=== PATIENT | male | born 1940 | race Caucasian/White ===

== ENCOUNTER 2016-11-25 07:50 | Outpatient (CLI) | payer MEDICARE, OTHER | END 2016-11-25 07:51 | disposition home or self-care (01) | DX: I10 Essential (primary) hypertension (principal); E11.9 Type 2 diabetes mellitus without complications; E78.00 Pure hypercholesterolemia, unspecified; Z79.899 Other long term (current) drug therapy ==

== ENCOUNTER 2017-01-06 14:58 | Outpatient (CLI) | payer MEDICARE, OTHER | END 2017-01-06 14:59 | disposition home or self-care (01) | DX: G47.33 Obstructive sleep apnea (adult) (pediatric) (principal); R23.4 Changes in skin texture | CPT/HCPCS: 99214; G0463 ==

== ENCOUNTER 2017-03-10 08:30 | Outpatient (CLI) | payer MEDICARE, OTHER ==
[2017-03-10 14:47] LABS: HEMOGLOBIN A1C 0.75 g/dL
== END 2017-03-10 08:31 | disposition home or self-care (01) ==
LOC: LAB.WCP 08:30
PROVIDERS: ATTEND Family Medicine
DX: E11.9 Type 2 diabetes mellitus without complications (principal)
CPT/HCPCS: 36415; 83036

== ENCOUNTER 2017-03-11 08:31 | Outpatient (CLI) | payer MEDICARE, OTHER | END 2017-03-11 08:32 | disposition home or self-care (01) | LOC: SC 08:31 | PROVIDERS: ATTEND Nurse Practitioner Family | DX: G47.33 Obstructive sleep apnea (adult) (pediatric) (principal) | CPT/HCPCS: 99214; G0463; 99212 ==

== ENCOUNTER 2017-09-03 14:16 | Outpatient (CLI) | payer MEDICARE, OTHER ==
[2017-09-03 13:17] LABS: BASOPHILS % (AUTO) 0.6 %; EOSINOPHILS # (AUTO) 0.4 10^3/uL (0.0-0.7); HCT - HEMATOCRIT 39.6 % (42.0-52.0); LYMPHOCYTES # (AUTO) 2.4 10^3/uL (1.5-3.5); LYMPHOCYTES % (AUTO) 32.5 %; MEAN CORPUSCULAR HEMOGLOBIN 27.5 pg (27.0-31.0); MEAN CORPUSCULAR HGB CONC 32.8 g/dL (32.0-36.0); MEAN CORPUSCULAR VOLUME 83.7 fL (80.0-94.0); MEAN PLATELET VOLUME 10.1 fL (7.4-11.4); MONOCYTES % (AUTO) 13.5 %; NEUTROPHILS # (AUTO) 3.6 10^3/uL (1.5-6.6); NEUTROPHILS % (AUTO) 48.4 %; NUCLEATED RED BLOOD CELLS AUTO 0.1 /100WBC; RED BLOOD COUNT 4.73 10^6/uL (4.70-6.10); RED CELL DISTRIBUTION WIDTH 16.9 % (12.0-15.0); UNCORRECTED WHITE BLOOD COUNT 7.5 x10^3/uL; WHITE BLOOD COUNT 7.5 x10^3/uL (4.8-10.8)
[2017-09-03 14:08] LABS: ALBUMIN/GLOBULIN RATIO 1.1 (1.0-2.2); BILIRUBIN,TOTAL 0.8 mg/dL (0.2-1.0); BUN - BLOOD UREA NITROGEN 15 mg/dL (6-20); CALCIUM 9.2 mg/dL (8.5-10.3); CARBON DIOXIDE - CO2 24 mmol/L (21-32); CHLORIDE 104 mmol/L (101-111); CHOL/HDL RATIO 4.2 (<5.0); CHOLESTEROL 143 mg/dL; CREATININE 1.1 mg/dL (0.6-1.2); GFR - MDRD 65 (>89); GLUCOSE 137 mg/dL (70-100); HDL CHOLESTEROL 34 mg/dL; LDL/HDL RATIO 2.5 (<3.6); POTASSIUM 4.3 mmol/L (3.5-5.0); SODIUM 137 mmol/L (135-145); TOTAL PROTEIN 7.3 g/dL (6.7-8.2); TRIGLYCERIDES 125 mg/dL; VLDL CHOLESTEROL 25 mg/dL
[2017-09-03 16:20] LABS: HEMOGLOBIN A1C 0.77 g/dL
== END 2017-09-03 14:17 | disposition home or self-care (01) ==
LOC: LAB.WCP 14:16
PROVIDERS: ATTEND Family Medicine
DX: E11.9 Type 2 diabetes mellitus without complications (principal); I10 Essential (primary) hypertension; Z79.899 Other long term (current) drug therapy
CPT/HCPCS: 36415; 80053; 80061; 83036; 84443; 85025

== ENCOUNTER 2017-09-25 11:49 | Outpatient (CLI) | payer MEDICARE, OTHER ==
[2017-09-25] MEDS ORDERED: ADENOSINE 60 MG/20 ML VIAL IVP ONE (14:30)
[2017-09-25 18:29] VITALS: BP 142/76
--- NOTE | 2017-09-25 22:00 | Nuclear Medicine Report ---
EXAM: NUCLEAR MEDICINE MYOCARDIAL PERFUSION STRESS AND REST EXAM EXAM DATE: 09/25/2017 04:44 PM. 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 COMPARISON: None. TECHNIQUE: Patient given 10.9 mCi technetium 99m sestamibi IV for the rest portion of the exam. Non-g ated cardiac SPECT scintigraphy of the heart performed with multiplanar reformats. Patient then given intravenous adenosine infusion. Pharmacologic stress. After this, patient given 41 .3 mCi technetium 99m sestamibi IV. Cardiac gated SPECT scintigraphy performed with multiplanar refor mats, wall motion analysis, and left ventricular ejection fraction estimation. FINDINGS: Small focus of mild to moderate decreased activity inferolateral apex on stress with normalization on rest. Otherwise uniform activity in the left ventricular myocardium. Wall motion is uniform. Left ventricular ejection fraction estimated at 59%. IMPRESSION: 1. Small focus mild to moderate inferior lateral apical ischemia with normalization on rest. 2. Left ventricular ejection fraction estimated at 59%. [facility] Referring Provider Line: [phone] SITE ID: [id number]
--- NOTE | 2017-09-26 09:07 | CARDIAC PROCEDURE NOTE ---
DATE OF SERVICE: 09/25/2017 Physician: AURORA Mario DATE OF SERVICE: 09/25/2017. PRIMARY CARE PHYSICIAN: Dr. Alfa Booker. PROCEDURE: Pharmacologic stress test. PROCEDURE SYMPTOMS: Abnormal EKG. CARDIAC RISK FACTORS: Include age, diabetes, hypertension and hyperlipidemia. PREVIOUS CARDIAC PROCEDURES: Inadequate treadmill test due to knee OA. CLINICAL HISTORY: A 77-year-old male without known coronary artery disease. Initial resting vital - blood pressure 142/76, heart rate 70, height 69-1/2 inches, weight 298 pounds, BMI 43.4. PROCEDURE AND FINDINGS: The patient's identity and date verified, consent signed, pharmaceutical check done. Pharmacologic stress testing was performed with adenosine at a dose of 140 mcg/kg/MIN over 6 minutes. The heart rate increased to 93 beats per minute from the infusion. The blood pressure response was normal during the stress procedure. The patient developed infusion related symptoms which included shortness of air and feeling hot. When symptoms occurred, they resolved spontaneously. The resting ECG demonstrated normal sinus rhythm with early transition and nonspecific T-wave changes. Maximum ST segment depression with stress was 0. There were biphasic T waves and T-wave inversions. FINAL IMPRESSIONS: 1. Negative electrocardiogram for ischemia in the setting of vasodilator stress. 2. Nonspecific T-wave changes. 3. Negative stress test for angina. 4. Await myocardial perfusion report. TD: 09/25/2017 22:08 MTDD
== END 2017-09-25 11:50 | disposition home or self-care (01) ==
LOC: DI 11:49
PROVIDERS: ATTEND Family Medicine
DX: I25.9 Chronic ischemic heart disease, unspecified (principal); E11.9 Type 2 diabetes mellitus without complications; I10 Essential (primary) hypertension; E78.5 Hyperlipidemia, unspecified
CPT/HCPCS: 78452; 93017; A9500; J0153

== ENCOUNTER 2017-11-03 07:40 | Outpatient (CLI) | payer MEDICARE, OTHER ==
[2017-11-03 13:19] LABS: CALCIUM 8.7 mg/dL (8.5-10.3); CREATININE 1.1 mg/dL (0.6-1.2)
== END 2017-11-03 07:41 | disposition home or self-care (01) ==
LOC: LAB.WCP 07:40
PROVIDERS: ATTEND Internal Medicine Cardiovascular Disease
DX: E11.9 Type 2 diabetes mellitus without complications (principal)
CPT/HCPCS: 36415; 80048

== ENCOUNTER 2017-12-08 07:39 | Outpatient (CLI) | payer MEDICARE, OTHER ==
[2017-12-08 12:47] LABS: BASOPHILS % (AUTO) 0.4 %; EOSINOPHILS # (AUTO) 0.3 10^3/uL (0.0-0.7); EOSINOPHILS % (AUTO) 2.8 %; HGB - HEMOGLOBIN 13.1 g/dL (14.0-18.0); LYMPHOCYTES % (AUTO) 31.7 %; MEAN CORPUSCULAR HEMOGLOBIN 26.9 pg (27.0-31.0); MEAN CORPUSCULAR HGB CONC 32.1 g/dL (32.0-36.0); MEAN PLATELET VOLUME 9.6 fL (7.4-11.4); MONOCYTES # (AUTO) 1.2 10^3/uL (0.0-1.0); MONOCYTES % (AUTO) 12.7 %; NEUTROPHILS # (AUTO) 4.9 10^3/uL (1.5-6.6); NEUTROPHILS % (AUTO) 52.4 %; PLT - PLATELET COUNT 220 10^3/uL (130-450); RED BLOOD COUNT 4.85 10^6/uL (4.70-6.10); WHITE BLOOD COUNT 9.3 x10^3/uL (4.8-10.8)
[2017-12-08 13:39] LABS: HB2 TOTAL 14.2 g/dL; HEMOGLOBIN A1C 0.84 g/dL; HEMOGLOBIN A1C % 7.6 % (4.6-6.2)
[2017-12-08 14:05] LABS: ALBUMIN 3.8 g/dL (3.2-5.5); ALBUMIN/GLOBULIN RATIO 1.1 (1.0-2.2); ALKALINE PHOSPHATASE 59 IU/L (42-121); ALT ALANINE AMINOTRANSFERASE 20 IU/L (10-60); AST ASPARTATE AMINOTRANSFERASE 26 IU/L (10-42); BILIRUBIN,TOTAL 0.8 mg/dL (0.2-1.0); BUN - BLOOD UREA NITROGEN 15 mg/dL (6-20); CALCIUM 8.6 mg/dL (8.5-10.3); CARBON DIOXIDE - CO2 22 mmol/L (21-32); CHLORIDE 107 mmol/L (101-111); CHOLESTEROL 111 mg/dL; CREATININE 0.9 mg/dL (0.6-1.2); GFR - MDRD 82 (>89); GLUCOSE 125 mg/dL (70-100); HDL CHOLESTEROL 28 mg/dL; LDL CHOLESTEROL,CALCULATED 61 mg/dL; LDL/HDL RATIO 2.2 (<3.6); SODIUM 138 mmol/L (135-145); TOTAL PROTEIN 7.4 g/dL (6.7-8.2); VLDL CHOLESTEROL 22 mg/dL
== END 2017-12-08 07:40 | disposition home or self-care (01) ==
LOC: LAB.WCP 07:39
PROVIDERS: ATTEND Family Medicine
DX: I10 Essential (primary) hypertension (principal); Z79.899 Other long term (current) drug therapy; E11.9 Type 2 diabetes mellitus without complications
CPT/HCPCS: 36415; 80053; 80061; 82043; 83036; 83721; 85025

== ENCOUNTER 2018-01-05 13:13 | Outpatient (CLI) | payer MEDICARE, OTHER ==
[2018-01-06 11:32] LABS: HB2 TOTAL 14.2 g/dL; HEMOGLOBIN A1C 0.85 g/dL; HEMOGLOBIN A1C % 7.6 % (4.6-6.2)
== END 2018-01-05 13:14 | disposition home or self-care (01) ==
LOC: LAB 13:13
PROVIDERS: ATTEND Orthopaedic Surgery
DX: Z01.812 Encounter for preprocedural laboratory examination (principal); T84.84XD Pain due to internal orthopedic prosthetic devices, implants and grafts, subsequent encounter; T84.84XS Pain due to internal orthopedic prosthetic devices, implants and grafts, sequela; M17.11 Unilateral primary osteoarthritis, right knee
CPT/HCPCS: 36415; 83036; 86850; 86900; 86901

== ENCOUNTER 2018-01-06 05:53 | Inpatient (IN) | payer MEDICARE, OTHER ==
[2018-01-06] MEDS ORDERED: LACTATED RINGERS 1,000 ML IV ONE ×2 (06:32→09:00)
[2018-01-06] MEDS ORDERED: ceFAZolin 2 GM/50 ML 2 GM/50 ML BAG IV ONE (06:32)
[2018-01-06] MEDS ORDERED: EPINEPHrine 1 MG/ML AMP ONE (06:56)
[2018-01-06] MEDS ORDERED: ROPIVACAINE 0.5% PF 20 ML AMPULE ONE (06:56)
[2018-01-06] MEDS ORDERED: BUPIVACAINE 0.5% PF 30 ML VIAL ONE (06:57)
[2018-01-06] MEDS: ATENOLOL 25 MG TABLET PO STA ×2 (07:25→12:00)
[2018-01-06] MEDS ORDERED: KETOROLAC 30 MG/ML VIAL IVP ONE ×2 (09:04→09:15)
[2018-01-06] MEDS ORDERED: MORPHINE PF 5 MG/10 ML AMP EP ONE (09:04)
[2018-01-06] MEDS ORDERED: PROPOFOL 200 MG/20 ML VIAL IVP ONE (09:04)
[2018-01-06] MEDS ORDERED: LIDOCAINE-MPF 2% 5 ML VIAL IM ONE (09:04)
[2018-01-06] MEDS ORDERED: ROCURONIUM 50 MG/5 ML VIAL IVP ONE (09:04)
[2018-01-06] MEDS ORDERED: ONDANSETRON 4 MG/2 ML VIAL IVP ONE (09:04)
[2018-01-06] MEDS ORDERED: fentaNYL 250 MCG/5 ML VIAL IVP ONE (09:04)
[2018-01-06] MEDS ORDERED: ROPIVACAINE 0.2% PF 20 ML AMPULE SUBQ ONE (09:12)
[2018-01-06] MEDS ORDERED: MORPHINE PF 10 MG/10 ML AMP SUBQ ONE (09:13)
[2018-01-06] MEDS ORDERED: EPINEPHrine 1 MG/ML AMP IVP ONE (09:14)
[2018-01-06] MEDS ORDERED: BUPIVACAINE 0.5% PF 30 ML VIAL INFIL ONE ×2 (09:17)
--- NOTE | 2018-01-06 10:43 | OPERATIVE REPORT ---
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 Kasper Anesthesia Technique: General ET tube Estimated Blood Loss (mL): 100
[2018-01-06] MEDS ORDERED: PROCHLORPERAZINE 10 MG/2 ML VIAL IVP PRN (10:44)
[2018-01-06] MEDS ORDERED: ACETAMINOPHEN 325 MG TABLET PO PRN (10:44)
[2018-01-06] MEDS ORDERED: ACETAMINOPHEN 1,000 MG/100 ML 100 ML IV PRN (10:44)
[2018-01-06] MEDS ORDERED: ONDANSETRON 4 MG/2 ML VIAL IVP PRN (10:44)
[2018-01-06] MEDS ORDERED: SODIUM CHLORIDE FLUSH 0.9% 10 ML SYRINGE IVP PRN (10:44)
[2018-01-06] MEDS ORDERED: HYDROmorphone 1 MG/ML CARPUJECT IVP PRN (10:44)
[2018-01-06] MEDS ORDERED: BISACODYL 10 MG SUPP PR PRN (10:44)
[2018-01-06] MEDS ORDERED: ACETAMINOPHEN 1,000 MG/100 ML 100 ML IV ONE (11:18)
--- NOTE | 2018-01-06 11:34 | XRAY Report ---
TWO VIEW RIGHT KNEE: 01/06/2018 CLINICAL INDICATION: Postop. FINDINGS: Frontal and lateral views of the right knee demonstrate a total knee replacement in place. Subcutaneous gas is present. There is no evidence of acute fracture or immediate hardware complication. IMPRESSION: POSTOPERATIVE CHANGES OF RIGHT KNEE REPLACEMENT. NO EVIDENCE OF FRACTURE OR IMMEDIATE HARDWARE COMPLICATION. TD: 01/06/2018 11:32
[2018-01-06] MEDS: INSULIN ASPART 300 UNIT/3 ML PEN SUBQ SCH ×3 (12:06→21:22)
[2018-01-06] MEDS: SODIUM CHLORIDE 0.45% 1,000 ML IV SCH ×2 (12:07→22:57)
[2018-01-06] MEDS: ceFAZolin 2 GM/50 ML 2 GM/50 ML BAG IV SCH (15:41)
[2018-01-06] MEDS: SODIUM CHLORIDE FLUSH 0.9% 10 ML SYRINGE IVP SCH (16:08)
[2018-01-06] MEDS: metFORMIN 500 MG TABLET PO SCH (16:55)
--- NOTE | 2018-01-06 19:03 | OPERATIVE REPORT ---
DATE OF SERVICE: 01/06/2018 Physician: Ayse Damon MD PREOPERATIVE DIAGNOSES 1. Right knee failed unicompartmental knee arthroplasty. 2. Generalized knee arthritis. POSTOPERATIVE DIAGNOSES 1. Right knee failed unicompartmental knee arthroplasty. 2. Generalized knee arthritis. NAME OF PROCEDURE: Right knee removal of the unicompartmental arthroplasty, followed by revision to total knee arthroplasty. SURGEON: Ayse Damon MD ANESTHESIA: General by Dr. Martin. INDICATIONS FOR SURGERY: Patient is a 77-year-old male who has had a longstanding right knee unicompartmental arthroplasty and recently, over the last 6 months, has had increasing pain and swelling of the knee with occasional mechanical symptoms and worsening gait. The patient appears to have progressive arthritis of his knee in the compartments not previously replaced. FINDINGS AT SURGERY: The patient's knee exam under anesthesia showed range of motion 5 degrees to 95 degrees with moderate effusion and general knee enlargement without warmth with a well-healed anterior scar. At arthrotomy, the patient was found to have inflammatory synovium, grayish discolored, mostly in the suprapatellar pouch with, in one instance, a sliver of poly and a granuloma-like finding in the suprapatellar area. The patient's components remained fixed and attached. There was generalized arthritis in the knee. The patient's polyethylene was flaking off the most medial aspect, and there were defects from prior delamination. DESCRIPTION OF OPERATIVE PROCEDURE: The patient was taken to the operating room. He was given a general anesthetic in a supine position, and a tourniquet was placed on his thigh. His leg was sterilely prepped and draped in standard fashion. Surgical timeout was undertaken. The patient's limb was then exsanguinated and the tourniquet inflated to 300 mmHg. The patient's previous anterior incision had been marked, and this incision was reopened. This was an extensile longitudinal incision. The patient had very thin skin, but the suture line was traced and reopened in a medial parapatellar fashion and the preexisting suture material removed with a rongeur. The patient's flaps were developed distally along the medial part of the knee, doing somewhat of a release of the distal insertion of medial collateral ligament. Fat pad was excised and ultimately the patella was able to be everted. This required a lateral release and debridement around the patella and debulking of the patella, cutting it down from 26 mm to 18 in width. Once the knee was able to be flexed, menisci and cruciates were removed and the rongeur was used to debride osteophytes around the rim of the knee and around the tibial area. A distal femoral drill hole was made, and the central alignment guide was placed for the distal cutting jig, which was applied to the femur and set to take an extra 2 mm off the femur. This cut was made, and the saw was carefully used to cut around the existing unicompartmental femoral component. A small saw was then brought in and used to cut further around the pegs in the component so that this femoral component could ultimately be lifted off the femur without damage to surrounding structures. Some cement was left behind and well fixed in the femur and the cement that was easily removed was taken from the femur. The femoral sizing was to a size 10 and 4-in-1 cuts were made on the femur appropriately, taking into account proper rotation and referencing Beckie line. The tibia was then exposed, and once again, a very meticulous dissection was made around the medial component. The poly was removed and the baseplate was freed up by using a saw and a small osteotome around the base and ultimately lifting this directly off the tibia with minimal bone loss. The proximal tibia cutting guide was applied, and a proximal tibia cut was made with intent to cut into slight varus of about 3 degrees to match the patient's anatomy and to excise into fresh bone beneath the tibial implant. This was achieved. The tibia sized to an E, and appropriate base plate was applied and attached and broached. Trial reduction was performed and size 11 medial congruent poly appeared to most appropriately restore range of motion and stability of the collateral ligaments. The implants were removed, and the patella was prepared by drilling and sizing for a 35 mm medialized patellar component, which tracked well with the knee through a range of motion. With all trial components removed, the knee was flushed and irrigated and the surfaces were dried and prepared for cementing. Initial cementing was of the tibial baseplate with removal of excess cement and then insertion of the 11 mm thickness poly, followed by insertion of the size 10 femoral component and insertion of the patellar button. All excess cement was removed, and the knee was positioned in extension as cement hardened. The tracking of the patella was excellent, the components aligned well, and stability was good. The knee was flushed. It was given a bath of dilute iodine solution and then flushed clean with pulsatile lavage and finally injected around the bones with a deep injection, followed by superficial skin injection of Marcaine with epinephrine. The tourniquet was deflated, and there was minimal bleeding. Closure was undertaken with FiberWire closure of the medial retinaculum watertight, followed by interrupted closure of the subcutaneous tissues with an 0 and 2-0 Vicryl and Monocryl closure of skin. Sterile dressings and a silver-containing dressing were applied. The patient was then taken to the recovery room in stable condition. ESTIMATED BLOOD LOSS: Less than 100 mL. COMPLICATIONS: None. SPONGE AND NEEDLE COUNTS: Correct. TOURNIQUET TIME: 93 minutes at 300 mmHg. COMPONENTS/IMPLANTS USED: Size 10 right Persona femoral component, a size E tibial baseplate, an 11 mm medial congruent poly, and a 35 mm x 9 mm thick patella. TD: 01/06/2018 19:03
[2018-01-06] MEDS: ATENOLOL 25 MG TABLET PO SCH (21:21)
[2018-01-06] MEDS: ATORVASTATIN 40 MG TABLET PO SCH (21:22)
[2018-01-06] MEDS: ESCITALOPRAM 10 MG TABLET PO SCH (21:22)
[2018-01-07] MEDS: ceFAZolin 2 GM/50 ML 2 GM/50 ML BAG IV SCH (01:27)
[2018-01-07] MEDS: SODIUM CHLORIDE FLUSH 0.9% 10 ML SYRINGE IVP SCH ×3 (01:27→17:54)
[2018-01-07 05:48] LABS: BASOPHILS % (AUTO) 0.3 %; EOSINOPHILS # (AUTO) 0.2 10^3/uL (0.0-0.7); EOSINOPHILS % (AUTO) 1.9 %; HGB - HEMOGLOBIN 10.5 g/dL (14.0-18.0); LYMPHOCYTES # (AUTO) 1.7 10^3/uL (1.5-3.5); LYMPHOCYTES % (AUTO) 16.3 %; MEAN CORPUSCULAR HEMOGLOBIN 26.8 pg (27.0-31.0); MEAN CORPUSCULAR HGB CONC 31.6 g/dL (32.0-36.0); MONOCYTES # (AUTO) 1.5 10^3/uL (0.0-1.0); MONOCYTES % (AUTO) 14.5 %; NEUTROPHILS # (AUTO) 6.9 10^3/uL (1.5-6.6); PLT - PLATELET COUNT 204 10^3/uL (130-450); RED CELL DISTRIBUTION WIDTH 16.5 % (12.0-15.0); WHITE BLOOD COUNT 10.2 x10^3/uL (4.8-10.8)
[2018-01-07] MEDS: SODIUM CHLORIDE 0.45% 1,000 ML IV SCH (05:59)
[2018-01-07] MEDS: PANTOPRAZOLE 40 MG TABLET PO SCH (05:59)
[2018-01-07 06:02] LABS: CALCIUM 7.8 mg/dL (8.5-10.3); CREATININE 1.1 mg/dL (0.6-1.2)
--- NOTE | 2018-01-07 06:48 | PROVIDER PROGRESS NOTE ---
Subjective - General Admit Date: 01/06/18 Procedure Date: 01/06/18 Post Op Days: 1 Procedure Performed: right knee revision to TKA - Review of Systems Wound/Incisions: positive: Drainage (mild bleeding anterior knee wound into dressing Overwrap in place.) HEENT: positive: No symptoms Pulmonary: positive: No symptoms Cardiovascular: positive: No symptoms Gastrointestinal: positive: No symptoms Musculoskeletal: positive: Joint pain Skin: positive: No symptoms Objective - Patient Data Reviewed Vital Signs: Yes Vital Signs: Vital Signs x48h Temp Pulse Resp BP Pulse Ox 01/07/18 02:55 36.7 C 74 18 123/64 97 01/06/18 23:40 36.8 C 68 16 125/71 96 Weight: Weight 01/05/18 01/06/18 01/07/18 23:59 23:59 23:59 Weight (kg) 134 kg Intake & Output: Intake and Output Totals x24h 01/05/18 01/06/18 01/07/18 23:59 23:59 23:59 Intake Total 1768 50 Output Total 425 Balance 1343 50 - Lab Results Lab Results: 01/07/18 05:36 01/07/18 05:36 Other Lab Results: Lab Results x24hrs 01/07/18 01/07/18 01/06/18 Range/Units 05:36 05:36 20:46 WBC 10.2 (4.8-10.8) x10^3/uL RBC 3.90 L (4.70-6.10) 10^6/uL Hgb 10.5 L (14.0-18.0) g/dL Hct 33.1 L (42.0-52.0) % MCV 85.0 (80.0-94.0) fL MCH 26.8 L (27.0-31.0) pg MCHC 31.6 L (32.0-36.0) g/dL RDW 16.5 H (12.0-15.0) % Plt Count 204 (130-450) 10^3/uL MPV 8.0 (7.4-11.4) fL Neut # 6.9 H (1.5-6.6) 10^3/uL Lymph # 1.7 (1.5-3.5) 10^3/uL Washburn # 1.5 H (0.0-1.0) 10^3/uL Eos # 0.2 (0.0-0.7) 10^3/uL Baso # 0.0 (0.0-0.1) 10^3/uL Absolute Nucleated RBC 0.00 x10^3/uL Nucleated RBC % 0.0 /100WBC Sodium 136 (135-145) mmol/L Potassium 4.3 (3.5-5.0) mmol/L Chloride 105 (101-111) mmol/L Carbon Dioxide 26 (21-32) mmol/L Anion Gap 5.0 L (6-13) BUN 19 (6-20) mg/dL Creatinine 1.1 (0.6-1.2) mg/dL Estimated GFR (MDRD) 65 L (>89) Glucose 219 H (70-100) mg/dL POC Whole Bld Glucose 170 H (70 - 100) mg/dL Glycated Hemoglobin (4.6-6.2) % Estim Average Glucose (70-100) Calcium 7.8 L (8.5-10.3) mg/dL 01/06/18 01/06/18 01/06/18 Range/Units 16:41 11:55 10:46 WBC (4.8-10.8) x10^3/uL RBC (4.70-6.10) 10^6/uL Hgb (14.0-18.0) g/dL Hct (42.0-52.0) % MCV (80.0-94.0) fL MCH (27.0-31.0) pg MCHC (32.0-36.0) g/dL RDW (12.0-15.0) % Plt Count (130-450) 10^3/uL MPV (7.4-11.4) fL Neut # (1.5-6.6) 10^3/uL Lymph # (1.5-3.5) 10^3/uL Washburn # (0.0-1.0) 10^3/uL Eos # (0.0-0.7) 10^3/uL Baso # (0.0-0.1) 10^3/uL Absolute Nucleated RBC x10^3/uL Nucleated RBC % /100WBC Sodium (135-145) mmol/L Potassium (3.5-5.0) mmol/L Chloride (101-111) mmol/L Carbon Dioxide (21-32) mmol/L Anion Gap (6-13) BUN (6-20) mg/dL Creatinine (0.6-1.2) mg/dL Estimated GFR (MDRD) (>89) Glucose (70-100) mg/dL POC Whole Bld Glucose 208 H 169 H 179 H (70 - 100) mg/dL Glycated Hemoglobin (4.6-6.2) % Estim Average Glucose (70-100) Calcium (8.5-10.3) mg/dL 01/06/18 01/05/18 Range/Units 08:58 13:30 WBC (4.8-10.8) x10^3/uL RBC (4.70-6.10) 10^6/uL Hgb (14.0-18.0) g/dL Hct (42.0-52.0) % MCV (80.0-94.0) fL MCH (27.0-31.0) pg MCHC (32.0-36.0) g/dL RDW (12.0-15.0) % Plt Count (130-450) 10^3/uL MPV (7.4-11.4) fL Neut # (1.5-6.6) 10^3/uL Lymph # (1.5-3.5) 10^3/uL [place] # (0.0-1.0) 10^3/uL Eos # (0.0-0.7) 10^3/uL Baso # (0.0-0.1) 10^3/uL Absolute Nucleated RBC x10^3/uL Nucleated RBC % /100WBC Sodium (135-145) mmol/L Potassium (3.5-5.0) mmol/L Chloride (101-111) mmol/L Carbon Dioxide (21-32) mmol/L Anion Gap (6-13) BUN (6-20) mg/dL Creatinine (0.6-1.2) mg/dL Estimated GFR (MDRD) (>89) Glucose (70-100) mg/dL POC Whole Bld Glucose 152 H (70 - 100) mg/dL Glycated Hemoglobin 7.6 H (4.6-6.2) % Estim Average Glucose 171 H (70-100) Calcium (8.5-10.3) mg/dL - Imaging Results Radiology Imaging: positive: EMP read indepedently - Current Medications Current Medications: Current Medications Generic Name Dose Route Start Last Admin Trade Name Freq PRN Reason Stop Dose Admin Atenolol 50 mg 01/06/18 21:00 01/06/18 21:21 Tenormin PO 50 mg QPM MONY Administration Atorvastatin Calcium 40 mg 01/06/18 21:00 01/06/18 21:22 Lipitor PO 40 mg QPM MONY Administration Escitalopram Oxalate 20 mg 01/06/18 21:00 01/06/18 21:22 Lexapro PO 20 mg QPM MONY Administration Sodium Chloride 1,000 mls @ 100 mls/hr 01/06/18 11:00 01/07/18 05:59 Normal Saline 0.45% IV Not Given .Q10H MONY Insulin Aspart 1 - 5 unit 01/06/18 12:00 01/06/18 21:22 Novolog SUBQ 1 unit 0800,1200,1700,2100 MONY Administration Protocol Metformin HCl 1,000 mg 01/06/18 17:00 01/06/18 16:55 Glucophage PO 1,000 mg BIDWM MONY Administration Pantoprazole Sodium 40 mg 01/07/18 07:00 01/07/18 05:59 Protonix PO 40 mg QDAC MONY Administration Sodium Chloride 10 ml 01/06/18 17:00 01/07/18 01:27 Normal Saline Flush 0.9% IVP Not Given 0100,0900,1700 MONY Sodium Chloride 10 ml 01/06/18 10:44 01/06/18 23:05 Normal Saline Flush 0.9% IVP 10 ml PRN PRN Administration NEEDED PER PROVIDER ORDERS - Physical Exam Wound/Incisions: positive: Drainage General Appearance: positive: No acute distress Cardiovascular: positive: Regular rate & rhythm Abdomen: positive: Non-tender Skin: positive: No rash Extremities: positive: Joint swelling Neurologic/Psychiatric: positive: Oriented x3, CN's nml (2-12), Motor nml, Sensation nml, Mood/affect nml Impression/Plan - Problem List Problem List: POD #1: Pt is doing well and has begin PT. Plan for dressing change tomorrow. Continue care.
[2018-01-07] MEDS: LOSARTAN 50 MG TABLET PO SCH (08:22)
[2018-01-07] MEDS: ASPIRIN EC 325 MG TABLET PO SCH ×2 (08:22→20:35)
[2018-01-07] MEDS: INSULIN ASPART 300 UNIT/3 ML PEN SUBQ SCH ×4 (08:23→20:39)
[2018-01-07] MEDS: metFORMIN 500 MG TABLET PO SCH ×2 (08:23→17:52)
[2018-01-07] MEDS: INSULIN GLARGINE 300 UNIT/3 ML PEN SUBQ SCH (08:27)
[2018-01-07] MEDS ORDERED: INSULIN ASPART 300 UNIT/3 ML PEN SUBQ SCH (12:48)
[2018-01-07] MEDS: oxyCOD/ACETAMIN 5 MG/325 MG TABLET PO PRN ×2 (13:49→17:50)
[2018-01-07] MEDS: ESCITALOPRAM 10 MG TABLET PO SCH (20:35)
[2018-01-07] MEDS: ATENOLOL 25 MG TABLET PO SCH (20:36)
[2018-01-07] MEDS: ATORVASTATIN 40 MG TABLET PO SCH (20:36)
[2018-01-07] MEDS: SENNA 8.6 MG TABLET PO PRN (20:36)
[2018-01-08] MEDS: SODIUM CHLORIDE FLUSH 0.9% 10 ML SYRINGE IVP SCH ×3 (00:45→17:23)
[2018-01-08] MEDS: PANTOPRAZOLE 40 MG TABLET PO SCH (06:49)
--- NOTE | 2018-01-08 07:16 | PROVIDER PROGRESS NOTE ---
Subjective - General Admit Date: 01/06/18 Procedure Date: 01/06/18 Post Op Days: 2 Procedure Performed: right knee revision to TKA - Review of Systems Wound/Incisions: positive: Healing well General: positive: Fatigue HEENT: positive: No symptoms Pulmonary: positive: No symptoms Cardiovascular: positive: No symptoms Gastrointestinal: positive: No symptoms Musculoskeletal: positive: Joint pain Skin: positive: No symptoms Psychiatric: positive: No symptoms Objective - Patient Data Reviewed Vital Signs: Yes Vital Signs: Vital Signs x48h Temp Pulse Resp BP Pulse Ox 01/08/18 04:35 36.6 C 66 18 129/56 L 95 01/08/18 00:33 36.6 C 76 18 129/59 L 94 Weight: Weight 01/06/18 01/07/18 01/08/18 23:59 23:59 23:59 Weight (kg) 134 kg Intake & Output: Intake and Output Totals x24h 01/06/18 01/07/18 01/08/18 23:59 23:59 23:59 Intake Total 1768 1930 200 Output Total 425 550 300 Balance 1343 1380 -100 - Lab Results Lab Results: 01/07/18 05:36 01/07/18 05:36 Other Lab Results: Lab Results x24hrs 01/07/18 01/07/18 01/07/18 Range/Units 20:31 16:28 11:28 POC Whole Bld Glucose 172 H 147 H 223 H (70 - 100) mg/dL 01/07/18 Range/Units 07:32 POC Whole Bld Glucose 209 H (70 - 100) mg/dL - Current Medications Current Medications: Current Medications Generic Name Dose Route Start Last Admin Trade Name Freq PRN Reason Stop Dose Admin Acetaminophen 650 - 975 mg 01/06/18 10:44 01/07/18 11:06 Tylenol PO 650 mg Q4HR PRN Administration PAIN Aspirin 325 mg 01/07/18 09:00 01/07/18 20:35 Ecotrin PO 325 mg BID MONY Administration Atenolol 50 mg 01/06/18 21:00 01/07/18 20:36 Tenormin PO 50 mg QPM MONY Administration Atorvastatin Calcium 40 mg 01/06/18 21:00 01/07/18 20:36 Lipitor PO 40 mg QPM MONY Administration Escitalopram Oxalate 20 mg 01/06/18 21:00 01/07/18 20:35 Lexapro PO 20 mg QPM MONY Administration Insulin Aspart 1 - 9 unit 01/07/18 17:00 01/07/18 20:39 Novolog SUBQ 1 unit 0800,1200,1700,2100 MONY Administration Protocol Insulin Glargine 40 unit 01/07/18 09:00 01/07/18 08:27 Lantus Solostar SUBQ 40 unit DAILY MONY Administration Losartan Potassium 100 mg 01/07/18 09:00 01/07/18 08:22 Cozaar PO 100 mg DAILY MONY Administration Metformin HCl 1,000 mg 01/06/18 17:00 01/07/18 17:52 Glucophage PO 1,000 mg BIDWM MONY Administration Oxycodone/Acetaminophen 1 tab 01/06/18 10:44 01/07/18 17:50 Percocet 5 Mg/325 Mg PO 1 tab Q4HR PRN Administration PAIN Pantoprazole Sodium 40 mg 01/07/18 07:00 01/08/18 06:49 Protonix PO 40 mg QDAC MONY Administration Senna 17.2 mg 01/06/18 10:44 01/07/18 20:36 Senokot PO 17.2 mg Q12H PRN Administration Constipation Sodium Chloride 10 ml 01/06/18 17:00 01/08/18 00:45 Normal Saline Flush 0.9% IVP 10 ml 0100,0900,1700 MONY Administration Sodium Chloride 10 ml 01/06/18 10:44 01/06/18 23:05 Normal Saline Flush 0.9% IVP 10 ml PRN PRN Administration NEEDED PER PROVIDER ORDERS - Physical Exam Wound/Incisions: positive: Healing well General Appearance: positive: No acute distress Extremities: positive: Joint swelling Neurologic/Psychiatric: positive: Oriented x3 Impression/Plan - Problem List Problem List: POD #2 Pt is progressing appropriately. Dressing changed. Discussed SNF placement plan for tomorrow AM
[2018-01-08] MEDS: oxyCOD/ACETAMIN 5 MG/325 MG TABLET PO PRN ×2 (08:36→22:16)
[2018-01-08] MEDS: ASPIRIN EC 325 MG TABLET PO SCH ×2 (08:37→22:17)
[2018-01-08] MEDS: LOSARTAN 50 MG TABLET PO SCH (08:37)
[2018-01-08] MEDS: POLYETHYLENE GLYCOL 3350 17 GM PACKET PO SCH (08:39)
[2018-01-08] MEDS: metFORMIN 500 MG TABLET PO SCH ×2 (08:39→17:19)
[2018-01-08] MEDS: INSULIN GLARGINE 300 UNIT/3 ML PEN SUBQ SCH (08:40)
[2018-01-08] MEDS: INSULIN ASPART 300 UNIT/3 ML PEN SUBQ SCH ×4 (08:41→22:19)
--- NOTE | 2018-01-08 10:33 | Discharge Plan ---
"Discharge Plan for SNF / [facility] - DC Plan and Transition Orders Disposition: 03 SNF DC/Xfer Condition: Good SNF Transition Orders: Admit to: [[facility]] under the care of [Doctor Mayur] e Discharge Diagnosis: []S/P right knee revision surgery, partial to total knee arthroplasty 01-06-18 Medicare Certification: I certify that [facility] is medically necessary on a continuing basis for any of the conditions for which she/he is receiving care during hospitalization. Notify PCP of admission and forward orders to primary provider for signature. Weight on admission and [every other day]. Call PCP immediately if weight increases by 8pounds or if patient develops dyspnea, chest pain/tightness or edema. House Bowel Program: [Yes/] If no BM after 2 days, nurse may give M.O.M. 30ml PO PRN and /or ducolax Supp 1 SD and /or SOURAV 250mg P.O., and/or senna 1-2 tabs PO. On day 3 nurse may give repeat above order until residents constipation is resolved. Immunizations: Annual Influenza Vaccine: [Yes/]. (between May 23 and December 20.) Unless allergy or already given Two-Step PPD: [Yes/] per [facility] [phone] or appropriate documentation of approved exceptions Treatments & Other Orders: [Physical therapy. Weight bear as tolerated left LE. Gentle progressive ROM of right knee. ] Oxygen Orders: [] Lab Tests or X-Rays Orders: [] Orthopedic Orders: [Silver dressing on right knee to be left intact, clean and dry.]. Medications: PLEASE REFER TO THE DISCHARGE MEDICATION LIST. Insulin Orders? [Yes] Diagnosis: Diabetes Initiate hypo and hyperglycemia protocols for BG <70 and BG >375. May check BG prn for signs/symptoms of dysglycemia. Frequency of BG checks: [AC/] Basal Insulin: [] Lantus 100 units / ml inject subq as follows: [] [x] Other: [Patient's normal medication dosing] Correction Insulin: - Select the type of insulin below [Choose: Novolog/]100 units /ml insulin inject subq per orders indicate below [X] LOW DOSE [] MODERATE DOSE [] MODERATE/HIGH DOSE [] HIGH DOSE GB UNITS GB UNITS GB UNITS GB UNITS 61-140 0 UNITS 61-140 0 UNITS 61-140 0 UNITS 61-140 0 UNITS 141-175 1 UNITS 141-175 1 UNITS 141-175 2 UNITS 141-175 3 UNITS 176-225 2 UNITS 176-225 3 UNITS 176-225 4 UNITS 176-225 5 UNITS 226-275 3 UNITS 226-275 5 UNITS 226-275 6 UNITS 226-275 7 UNITS 276-325 4 UNITS 276-325 7 UNITS 276-325 8 UNITS 276-325 9 UNITS 326-375 5 UNITS 326-375 9 UNITS 326-375 10 UNITS 326-375 11 UNITS >375 CONTACT MD >375 CONTACT MD >375 CONTACT MD >375 CONTACT MD Custom Dosing: [Choose: None/Novolog/Humalog] 100 units/ml Insulin inject subq as follows: GB Units 61-140 [] Units 141-175 [] Units 176-225 [] Units 226-275 [] Units 276-325 []Units 326-375 [] Units >375 Contact MD Allergies and Adverse Reactions: Allergies Allergy/AdvReac Type Severity Reaction Status Date / Time codeine Allergy Hallucinati Verified 01/05/18 13:29 ons lisinopril Allergy Unknown Verified 01/05/18 13:29 - Medications New Prescriptions: oxyCODONE/ACET 5/325 [Percocet 5 mg/325 mg] 1 tab PO Q4HR PRN #30 tablet PRN Reason: Pain Aspirin EC [Ecotrin] 325 mg PO BID #60 tablet - Diet Texture: Regular Liquids: Thin May have monthly special meal: Yes - Therapies | Activity Therapy: Evaluation | Treat if indicated: PT, OT Rehabilitation Potential: Maximize functional status, Return to independent living Activity: Additional Comments (use of walker. Assist with ambulation) Weight Bearing: Full Weight Assistance Devices: Walker Additional Instructions: Silver dressing to be left intact on left knee. Cover dressing for shower Office f/u for dressing change in one week. Follow Up: Dr. Damon, Ortho clinic in one week"
[2018-01-08] MEDS: KETOROLAC 15 MG/ML VIAL IVP PRN (11:00)
[2018-01-08] MEDS: ESCITALOPRAM 10 MG TABLET PO SCH (22:15)
[2018-01-08] MEDS: ATENOLOL 25 MG TABLET PO SCH (22:16)
[2018-01-08] MEDS: ATORVASTATIN 40 MG TABLET PO SCH (22:16)
[2018-01-08] MEDS: DOCUSATE SODIUM 250 MG CAPSULE PO SCH (22:16)
[2018-01-08] MEDS: SENNA 8.6 MG TABLET PO PRN (22:16)
[2018-01-09] MEDS: SODIUM CHLORIDE FLUSH 0.9% 10 ML SYRINGE IVP SCH ×2 (00:32→08:37)
[2018-01-09] MEDS: PANTOPRAZOLE 40 MG TABLET PO SCH (06:32)
[2018-01-09] MEDS: DOCUSATE SODIUM 250 MG CAPSULE PO SCH (08:29)
[2018-01-09] MEDS: LOSARTAN 50 MG TABLET PO SCH (08:29)
[2018-01-09] MEDS: metFORMIN 500 MG TABLET PO SCH (08:30)
[2018-01-09] MEDS: oxyCOD/ACETAMIN 5 MG/325 MG TABLET PO PRN (08:30)
[2018-01-09] MEDS: ASPIRIN EC 325 MG TABLET PO SCH (08:30)
[2018-01-09] MEDS: SENNA 8.6 MG TABLET PO PRN (08:30)
[2018-01-09] MEDS: POLYETHYLENE GLYCOL 3350 17 GM PACKET PO SCH (08:31)
[2018-01-09] MEDS: INSULIN ASPART 300 UNIT/3 ML PEN SUBQ SCH ×2 (08:32→11:13)
[2018-01-09] MEDS: INSULIN GLARGINE 300 UNIT/3 ML PEN SUBQ SCH (08:33)
[2018-01-09] MEDS: KETOROLAC 15 MG/ML VIAL IVP PRN (08:37)
[2018-01-09 12:42] VITALS: BP 117/57
[2018-01-12] MEDS ORDERED: ALBIGLUTIDE 50 MG SUBQ SCH (08:00)
--- NOTE | 2018-01-12 19:05 | DISCHARGE SUMMARY ---
Physician: Ayse Damon MD DATE OF ADMISSION: 01/06/2018 DATE OF DISCHARGE: 01/09/2018 ADMISSION DIAGNOSIS: Right knee failed partial knee arthroplasty with generalized knee arthritis. OPERATIVE PROCEDURE: 01/06/2018, revision of a partial knee arthroplasty to a total knee arthroplasty. REASON FOR ADMISSION: This was a 77-year-old male who has had a prior partial knee replacement of his right knee who has gone on to develop generalized knee pain in spite of that prior surgery. The patient has been evaluated and followed in the clinic with increasing osteoarthritis of his knee and recommendation made for conversion of a partial knee arthroplasty to a total knee arthroplasty. The patient's history and physical exam and medications were all documented in his admit note. HOSPITAL COURSE: The patient was admitted. He underwent surgery on 01/06/2018 and tolerated this well. Postoperatively, he returned to the medical/surgical floor, received standard care post-knee surgery. This included IV antibiotics, IV pain medication, early physical therapy mobilization, wound care with a silver containing dressing and careful monitoring of labs and vitals. Patient did very well postoperatively and showed uneventful progressive healing. [facility], the patient had resumed all of his usual medications and additionally was using oral pain pills and aspirin for DVT prophylaxis. At this point, he was independently getting up and moving out of bed, but had some difficulty utilizing a walker that was felt to be corrected at the nursing facility. He was to be discharged there and return to clinic within a week. His silver dressing was reapplied and was to be left in place on his knee until clinic followup. He was to have physical therapy. TD: 01/12/2018 19:04
== END 2018-01-09 13:55 | DRG 467 ==
LOC: MS2 05:53 → INTOOBSV 05:53 → UNDOADMOB 05:53 → EDSTATUS 10:15 → OBSVTOIN 10:44 → INTOOBSV 10:44 → UNDODISIN 01-09 13:55
PROVIDERS: ADMIT Orthopaedic Surgery; ATTEND Orthopaedic Surgery
PROC: 0SPC0JZ Removal of Synthetic Substitute from Right Knee Joint, Open Approach (ICD-10-PCS; 2018-01-06)
PROC: 0SRC069 Replacement of Right Knee Joint with Oxidized Zirconium on Polyethylene Synthetic Substitute, Cemented, Open Approach (ICD-10-PCS; principal; 2018-01-06 07:30)
DX: T84.032A Mechanical loosening of internal right knee prosthetic joint, initial encounter (principal); Z68.41 Body mass index [BMI] 40.0-44.9, adult; T84.84XA Pain due to internal orthopedic prosthetic devices, implants and grafts, initial encounter; Y79.2 Prosthetic and other implants, materials and accessory orthopedic devices associated with adverse incidents; M17.11 Unilateral primary osteoarthritis, right knee; I10 Essential (primary) hypertension; G47.30 Sleep apnea, unspecified; E78.5 Hyperlipidemia, unspecified; E78.01 Familial hypercholesterolemia; K21.9 Gastro-esophageal reflux disease without esophagitis; I25.10 Atherosclerotic heart disease of native coronary artery without angina pectoris; F41.8 Other specified anxiety disorders; E11.40 Type 2 diabetes mellitus with diabetic neuropathy, unspecified; M51.36 Other intervertebral disc degeneration, lumbar region; M25.511 Pain in right shoulder; H70.10 Chronic mastoiditis, unspecified ear; M25.552 Pain in left hip; E66.9 Obesity, unspecified; Z79.899 Other long term (current) drug therapy; Z79.4 Long term (current) use of insulin; Z79.82 Long term (current) use of aspirin
CPT/HCPCS: 36415; 80048; 83036; 85025; 87070; 87205

== ENCOUNTER 2018-03-03 08:00 | Outpatient (CLI) | payer MEDICARE, OTHER ==
[2018-03-03 13:42] LABS: HB2 TOTAL 13.1 g/dL; HEMOGLOBIN A1C 0.63 g/dL; HEMOGLOBIN A1C % 6.6 % (4.6-6.2)
[2018-03-03 14:04] LABS: CALCIUM 8.9 mg/dL (8.5-10.3)
== END 2018-03-03 08:01 ==
LOC: LAB.WCP 08:00
PROVIDERS: ATTEND Family Medicine
DX: E78.5 Hyperlipidemia, unspecified (principal); I25.10 Atherosclerotic heart disease of native coronary artery without angina pectoris; E11.9 Type 2 diabetes mellitus without complications; I10 Essential (primary) hypertension
CPT/HCPCS: 36415; 80048; 83036

== ENCOUNTER 2018-06-09 08:30 | Outpatient (CLI) | payer MEDICARE, OTHER ==
[2018-06-09 14:25] LABS: HEMOGLOBIN A1C 0.71 g/dL; HEMOGLOBIN A1C % 7.1 % (4.6-6.2)
[2018-06-09 14:34] LABS: ALBUMIN 3.7 g/dL (3.2-5.5); ALBUMIN/GLOBULIN RATIO 1.1 (1.0-2.2); ALKALINE PHOSPHATASE 73 IU/L (42-121); ALT ALANINE AMINOTRANSFERASE 18 IU/L (10-60); AST ASPARTATE AMINOTRANSFERASE 22 IU/L (10-42); BUN - BLOOD UREA NITROGEN 20 mg/dL (6-20); CARBON DIOXIDE - CO2 25 mmol/L (21-32); CHLORIDE 105 mmol/L (101-111); CHOL/HDL RATIO 4.1 (<5.0); CHOLESTEROL 126 mg/dL; CREATININE 1.1 mg/dL (0.6-1.2); GFR - MDRD 65 (>89); GLUCOSE 156 mg/dL (70-100); HDL CHOLESTEROL 31 mg/dL; LDL CHOLESTEROL,CALCULATED 75 mg/dL; LDL/HDL RATIO 2.4 (<3.6); SODIUM 138 mmol/L (135-145); TOTAL PROTEIN 7.2 g/dL (6.7-8.2); VLDL CHOLESTEROL 20 mg/dL
== END 2018-06-09 08:31 | disposition home or self-care (01) ==
LOC: LAB.WCP 08:30
PROVIDERS: ATTEND Physician Assistant Medical
DX: E78.5 Hyperlipidemia, unspecified (principal); Z79.899 Other long term (current) drug therapy; I25.10 Atherosclerotic heart disease of native coronary artery without angina pectoris; E11.9 Type 2 diabetes mellitus without complications; I10 Essential (primary) hypertension
CPT/HCPCS: 36415; 80053; 80061; 82043; 83036; 83721

== ENCOUNTER 2018-09-09 08:41 | Outpatient (CLI) | payer MEDICARE, OTHER ==
[2018-09-09 13:47] LABS: HB2 TOTAL 13.6 g/dL; HEMOGLOBIN A1C 0.91 g/dL; HEMOGLOBIN A1C % 8.3 % (4.6-6.2)
[2018-09-09 14:51] LABS: CALCIUM 8.8 mg/dL (8.5-10.3); CREATININE 1.1 mg/dL (0.6-1.2)
== END 2018-09-09 23:59 | disposition home or self-care (01) ==
LOC: LAB.WCP 08:41
PROVIDERS: ATTEND Physician Assistant Medical
DX: E11.9 Type 2 diabetes mellitus without complications (principal)
CPT/HCPCS: 36415; 80048; 83036

== ENCOUNTER 2018-11-09 15:09 | Emergency (ER) | payer MEDICARE, OTHER ==
[2018-11-09 15:32] VITALS: BP 140/96
--- NOTE | 2018-11-09 17:01 | ED Physician Documentation ---
PD HPI PED ILLNESS - Stated complaint Stated Complaint: EAR PX/CHILLS - Chief complaint Chief Complaint: Heent - History obtained from History obtained from: Patient, Family - History of Present Illness Timing - onset: Yesterday (Bilateral ear pain since yesterday with left ear drainage today. No fevers. He is a type II diabetic but his blood sugars have been well controlled.) Review of Systems Constitutional: denies: Fever, Chills Ears: reports: Loss of hearing, Ear pain, Drainage/discharge Nose: reports: Rhinorrhea / runny nose Cardiac: denies: Chest pain / pressure Respiratory: denies: Dyspnea, Cough PD PAST MEDICAL HISTORY - Past Medical History Cardiovascular: Hypertension, Coronary artery disease Respiratory: Sleep apnea, CPAP use Endocrine/Autoimmune: Type 2 diabetes GI: GERD, Colon polyps : Benign prostate hypertrophy HEENT: Chronic vision loss, Chronic hearing loss Psych: Depression, Anxiety, Panic attacks Musculoskeletal: Osteoarthritis, Chronic back pain Derm: Eczema - Past Surgical History General: Colonoscopy Ortho: Knee replacement, Shoulder arthroplasty Cardiovascular: Cardiac catheterization HEENT: Other - Present Medications Home Medications: Ambulatory Orders Medication Instructions Recorded Confirmed Albiglutide [Tanzeum] 50 mg SQ Q7D 01/05/18 01/06/18 Atenolol 50 mg PO QPM 01/05/18 01/06/18 Atorvastatin Calcium 40 mg PO QPM 01/05/18 01/06/18 Escitalopram Oxalate 20 mg PO QPM 01/05/18 01/06/18 Insulin Glargine [Lantus Solostar] 40 unit SUBQ DAILY 01/05/18 01/06/18 Losartan Potassium 100 mg PO DAILY 01/05/18 01/06/18 Metformin HCl 1,000 mg PO BIDWM 01/05/18 01/06/18 Pantoprazole Sodium 20 mg PO QDAC 01/05/18 01/06/18 Acetaminophen [Tylenol] 650 - 975 mg PO Q4HR PRN tablet 01/09/18 Aspirin EC [Ecotrin] 325 mg PO BID #60 tablet 01/09/18 oxyCODONE/ACET 5/325 [Percocet 5 1 tab PO Q4HR PRN #30 tablet 01/09/18 mg/325 mg] Amox/Clav 875/125 [Augmentin] 1 each PO Q12H #20 tablet 11/09/18 - Allergies Allergies/Adverse Reactions: Allergies Allergy/AdvReac Type Severity Reaction Status Date / Time codeine Allergy Hallucinati Verified 11/09/18 15:32 ons lisinopril Allergy Unknown Verified 11/09/18 15:32 PD ED PE NORMAL - Vitals Vital signs reviewed: Yes - General General: Alert and oriented X 3, No acute distress - HEENT HEENT: Other (Severe bilateral otitis media with out mastoid tenderness or external otitis.) - Neck Neck: Supple, no meningeal sign, No bony TTP - Neuro Neuro: Alert and oriented X 3, Normal speech Results - Vitals Vitals: Vital Signs - 24 hr 11/09/18 15:30 Temperature 36.5 C Heart Rate 91 Respiratory 18 Rate Blood Pressure 140/96 H O2 Saturation 100 Oxygen O2 Source Room air Departure - Departure Disposition: Home, Self Care Clinical Impression: BOM (bilateral otitis media) Qualifiers: Otitis media type: suppurative Chronicity: acute Recurrence: non-recurrent Spontaneous tympanic membrane rupture: without spontaneous rupture Qualified Code(s): H66.003 - Acute suppurative otitis media without spontaneous rupture of ear drum, bilateral Condition: Good Record reviewed to determine appropriate education?: Yes Instructions: ED Otitis Media Acute Adult Prescriptions: Amox/Clav 875/125 [Augmentin] 1 each PO Q12H #20 tablet Comments: Follow-up with your doctor for recheck in 1 week. Return if worse. Your blood pressure was elevated today on check into the emergency department. This does not mean that you have hypertension, it is a common phenomenon to come to the emergency department and have elevated blood pressure. I recommend that you see your primary care physician within the week to have it rechecked when you are feeling better.
== END 2018-11-09 17:06 | disposition home or self-care (01) ==
LOC: ED 15:09
DX: H66.003 Acute suppurative otitis media without spontaneous rupture of ear drum, bilateral (principal); I10 Essential (primary) hypertension; I25.10 Atherosclerotic heart disease of native coronary artery without angina pectoris; E11.9 Type 2 diabetes mellitus without complications; Z96.659 Presence of unspecified artificial knee joint
CPT/HCPCS: 99283

== ENCOUNTER 2018-12-11 08:00 | Outpatient (CLI) | payer MEDICARE, OTHER ==
[2018-12-11 13:08] LABS: ALBUMIN 3.7 g/dL (3.2-5.5); ALKALINE PHOSPHATASE 84 IU/L (42-121); ALT ALANINE AMINOTRANSFERASE 25 IU/L (10-60); AST ASPARTATE AMINOTRANSFERASE 28 IU/L (10-42); BILIRUBIN,TOTAL 0.8 mg/dL (0.2-1.0); BUN - BLOOD UREA NITROGEN 16 mg/dL (6-20); CARBON DIOXIDE - CO2 27 mmol/L (21-32); CHLORIDE 106 mmol/L (101-111); CHOL/HDL RATIO 3.8 (<5.0); CHOLESTEROL 122 mg/dL; CREATININE 1.1 mg/dL (0.6-1.2); GFR - MDRD 65 (>89); GLUCOSE 159 mg/dL (70-100); HDL CHOLESTEROL 32 mg/dL; LDL CHOLESTEROL,CALCULATED 69 mg/dL; LDL/HDL RATIO 2.2 (<3.6); SODIUM 139 mmol/L (135-145); TOTAL PROTEIN 7.5 g/dL (6.7-8.2); VLDL CHOLESTEROL 21 mg/dL
[2018-12-11 13:10] LABS: HB2 TOTAL 14.2 g/dL; HEMOGLOBIN A1C 0.99 g/dL; HEMOGLOBIN A1C % 8.5 % (4.6-6.2)
== END 2018-12-11 23:59 | disposition home or self-care (01) ==
LOC: LAB.WCP 08:00
PROVIDERS: ATTEND Physician Assistant Medical
DX: E11.9 Type 2 diabetes mellitus without complications (principal)
CPT/HCPCS: 36415; 80053; 80061; 83036; 83721

== ENCOUNTER 2019-01-12 07:03 | Day surgery (SDC) | payer MEDICARE, OTHER ==
[2019-01-12] MEDS ORDERED: LACTATED RINGERS 1,000 ML IV ONE ×2 (07:31→13:34)
[2019-01-12] MEDS ORDERED: fentaNYL 250 MCG/5 ML VIAL IVP ONE ×2 (08:37→13:48)
[2019-01-12] MEDS ORDERED: MIDAZOLAM 2 MG/2 ML VIAL IVP ONE ×2 (08:37→13:48)
[2019-01-12] MEDS ORDERED: MINERAL OIL ENEMA 133 ML BOTTLE RC ONE (09:00)
[2019-01-12] MEDS ORDERED: A & D OINTMENT 5 GM PACKET TOP ONE (10:14)
[2019-01-12 15:20] VITALS: BP 138/65
--- NOTE | 2019-01-12 19:19 | PROCEDURE REPORT ---
DATE OF SERVICE: 01/12/2019 Physician: Bert Johnston MD PREOPERATIVE DIAGNOSIS: Screening. POSTOPERATIVE DIAGNOSIS: Incomplete colonoscopy due to poor prep. INDICATIONS FOR PROCEDURE: Patient is a 78-year-old man presenting for a screening colonoscopy. PROCEDURE IN DETAIL: The risks and benefits were explained to the patient, and he agreed to the proc edure. He was taken to the operating room, given sedation. A timeout was performed, and everyone in the room agreed to the procedure. We began by inserting a well-lubricated colonoscope into the anal cavity. Immediately encountered th ick solid stool throughout the anal vault, and we were unable to clear and advance the colonoscope. Therefore, we removed the colonoscope and took him to recovery. He had 2 Fleet enemas and then came back to the endoscopy suite. The colonoscope was inserted again. Although slightly improved, there was still solid stool throughout the rectum, and we were unable to advance the scope. Therefore, the scope was removed and the procedure terminated. The patient was taken to recovery in good condition . COMPLICATIONS: None. PLAN: To repeat colonoscopy with different prep solution. TD: 01/12/2019 14:44
== END 2019-01-12 07:04 | disposition home or self-care (01) ==
LOC: SDS 07:03
PROVIDERS: ATTEND Surgery
PROC: 0DJD8ZZ Inspection of Lower Intestinal Tract, Via Natural or Artificial Opening Endoscopic (ICD-10-PCS; principal; 2019-01-12 08:15)
DX: Z12.11 Encounter for screening for malignant neoplasm of colon (principal); I10 Essential (primary) hypertension; E11.9 Type 2 diabetes mellitus without complications; G47.33 Obstructive sleep apnea (adult) (pediatric)
CPT/HCPCS: A9270; G0121; J3010; J7120

== ENCOUNTER 2019-02-09 08:00 | Outpatient (CLI) | payer MEDICARE, OTHER ==
[2019-02-09 19:04] LABS: BASOPHILS # (AUTO) 0.1 10^3/uL (0.0-0.1); BASOPHILS % (AUTO) 0.6 %; EOSINOPHILS # (AUTO) 0.5 10^3/uL (0.0-0.7); HGB - HEMOGLOBIN 13.5 g/dL (14.0-18.0); LYMPHOCYTES # (AUTO) 3.3 10^3/uL (1.5-3.5); LYMPHOCYTES % (AUTO) 33.7 %; MEAN CORPUSCULAR HEMOGLOBIN 28.3 pg (27.0-31.0); MEAN CORPUSCULAR HGB CONC 32.1 g/dL (32.0-36.0); MEAN PLATELET VOLUME 9.1 fL (7.4-11.4); MONOCYTES # (AUTO) 1.2 10^3/uL (0.0-1.0); MONOCYTES % (AUTO) 12.1 %; NEUTROPHILS # (AUTO) 4.8 10^3/uL (1.5-6.6); NEUTROPHILS % (AUTO) 48.6 %; PLT - PLATELET COUNT 259 10^3/uL (130-450); RED BLOOD COUNT 4.79 10^6/uL (4.70-6.10); RED CELL DISTRIBUTION WIDTH 15.2 % (12.0-15.0); WHITE BLOOD COUNT 9.9 x10^3/uL (4.8-10.8)
== END 2019-02-09 23:59 | disposition home or self-care (01) ==
LOC: LAB.WCP 08:00
PROVIDERS: ATTEND Internal Medicine Gastroenterology
DX: E11.40 Type 2 diabetes mellitus with diabetic neuropathy, unspecified (principal)
CPT/HCPCS: 36415; 85025

== ENCOUNTER 2019-02-11 06:10 | Day surgery (SDC) | payer MEDICARE, OTHER ==
[2019-02-11] MEDS ORDERED: LACTATED RINGERS 1,000 ML IV ONE (06:49)
[2019-02-11] MEDS ORDERED: KETAMINE 500 MG/10 ML VIAL IVP ONE (07:00)
[2019-02-11] MEDS ORDERED: MIDAZOLAM 2 MG/2 ML VIAL IVP ONE (07:00)
[2019-02-11] MEDS ORDERED: PROPOFOL 200 MG/20 ML VIAL IVP ONE (07:00)
--- NOTE | 2019-02-11 07:07 | ANESTHESIA ---
Pre-Anesthesia VS, & Labs - Diagnosis GERD/HX of polyps - Procedure EGD/Cscope Vital Signs: Temp Pulse Resp BP Pulse Ox 36.5 C 89 18 158/102 H 92 02/11/19 06:42 02/11/19 06:42 02/11/19 06:42 02/11/19 06:42 02/11/19 06:42 Height 5 ft 10 in Weight (kg) 133.5 kg Body Mass Index 43.1 - NPO >8 hours - Lab Results Current Lab Results: Laboratory Tests 02/11/19 06:48: POC Whole Bld Glucose 190 H Lab results reviewed: Yes Home Medications and Allergies Atenolol 50 mg PO QPM 01/05/18 Escitalopram Oxalate 20 mg PO QPM 01/05/18 Insulin Glargine [Lantus Solostar] 45 unit SUBQ DAILY 01/05/18 Losartan Potassium 100 mg PO DAILY 01/05/18 Pantoprazole Sodium 20 mg PO QDAC 01/05/18 Aspirin [Aspirin EC] 81 mg PO DAILY 01/28/19 Dulaglutide [Trulicity] 1.5 mg SQ OAW 01/28/19 Gabapentin 300 mg PO BID 01/28/19 Metformin HCl [Metformin HCl ER] 1,000 mg PO DAILY 01/28/19 Simvastatin [Zocor] 40 mg PO DAILY 01/28/19 Allergies/Adverse Reactions: Allergies Allergy/AdvReac Type Severity Reaction Status Date / Time codeine Allergy Hallucinati Verified 11/09/18 15:32 ons lisinopril AdvReac cough Verified 02/03/19 11:11 Anes History & Medical History - Anesthetic History Anesthesia Complications: reports: No previous complications Family history of Anesthesia Complications: Denies Family history of Malignant Hyperthermia: Denies - Medical History Cardiovascular: reports: Hypertension, High cholesterol, Coronary artery disease Pulmonary: reports: Sleep apnea, CPAP use Gastrointestinal: reports: GERD, Colon polyps, Chronic constipation Urinary: reports: Benign prostate hypertrophy Musculoskeletal: reports: Osteoarthritis, Chronic back pain, Other Endocrine/Autoimmune: reports: Type 2 diabetes Skin: reports: Eczema Smoking Status: Never smoker - Surgical History General: Colonoscopy Eyes Ears Nose Throat (EENT): Other Cardiothoracic: Cardiac catheterization Orthopedic: Knee replacement, Shoulder arthroplasty Exam General: Alert, Oriented x3, Cooperative Dental: WNL Mouth Openin Fingerbreadth Neck Mobility: Normal Mallampati classification: II Respiratory: Lungs clear (dry cough) Cardiovascular: Regular rate Neurological: Normal speech Mental/Cognitive Status: Alert/Oriented X3, Normal for patient Cognitive Status: Within normal limits Plan Anesthesia Type: MAC Consent for Procedure(s) Verified and Reviewed: Yes Code Status: Attempt Resuscitation ASA classification: 3-Severe systemic disease Is this case an emergency?: No
[2019-02-11 08:32] VITALS: BP 144/89
== END 2019-02-11 06:11 | disposition home or self-care (01) ==
LOC: SDS 06:10
PROVIDERS: ATTEND Internal Medicine Gastroenterology
PROC: 0DJ08ZZ Inspection of Upper Intestinal Tract, Via Natural or Artificial Opening Endoscopic (ICD-10-PCS; 2019-02-11)
PROC: 0DBH8ZZ Excision of Cecum, Via Natural or Artificial Opening Endoscopic (ICD-10-PCS; principal; 2019-02-11 07:30)
PROC: 0DBP8ZX Excision of Rectum, Via Natural or Artificial Opening Endoscopic, Diagnostic (ICD-10-PCS; 2019-02-11 07:30)
DX: Z12.11 Encounter for screening for malignant neoplasm of colon (principal); D12.0 Benign neoplasm of cecum; K62.1 Rectal polyp; K57.30 Diverticulosis of large intestine without perforation or abscess without bleeding; K21.9 Gastro-esophageal reflux disease without esophagitis; K59.09 Other constipation; G47.30 Sleep apnea, unspecified; E66.01 Morbid (severe) obesity due to excess calories; E11.42 Type 2 diabetes mellitus with diabetic polyneuropathy; I10 Essential (primary) hypertension; Z79.4 Long term (current) use of insulin; Z79.899 Other long term (current) drug therapy; Z68.41 Body mass index [BMI] 40.0-44.9, adult
CPT/HCPCS: 43235; 45380; J7120

== ENCOUNTER 2019-02-13 14:20 | Outpatient (CLI) | payer MEDICARE, OTHER ==
--- NOTE | 2019-02-13 16:24 | XRAY Report ---
Reason: COUGH Procedure Date: 02/13/2019 Accession Number: [id number] / [id number] Procedure: XR - Chest 2 View X-Ray CPT Code: 96127 FULL RESULT: EXAM: CHEST RADIOGRAPHY EXAM DATE: 02/13/2019 02:48 PM. CLINICAL HISTORY: COUGH. COMPARISON: None. TECHNIQUE: 2 views. FINDINGS: Lungs/Pleura: Low lung volumes. No focal opacities evident. No pleural effusion. No pneumothorax. Normal volumes. Mediastinum: Heart and mediastinal contours are unremarkable. Other: None. IMPRESSION: Low lung volumes, otherwise no radiographic evidence for acute cardiothoracic process. RADIA
== END 2019-02-13 14:21 | disposition home or self-care (01) ==
LOC: DI 14:20
PROVIDERS: ATTEND Family Medicine
DX: R05 Cough (principal)
CPT/HCPCS: 71046

== ENCOUNTER 2019-03-11 08:53 | Outpatient (CLI) | payer MEDICARE, OTHER ==
[2019-03-11 12:39] LABS: CALCIUM 9.1 mg/dL (8.5-10.3); CREATININE 1.2 mg/dL (0.6-1.2)
[2019-03-11 13:03] LABS: HB2 TOTAL 13.6 g/dL; HEMOGLOBIN A1C 0.98 g/dL; HEMOGLOBIN A1C % 8.7 % (4.6-6.2)
== END 2019-03-11 08:54 | disposition home or self-care (01) ==
LOC: LAB.WCP 08:53
PROVIDERS: ATTEND Physician Assistant Medical
DX: E11.49 Type 2 diabetes mellitus with other diabetic neurological complication (principal)
CPT/HCPCS: 36415; 80048; 83036

== ENCOUNTER 2019-04-01 13:38 | Outpatient (CLI) | payer MEDICARE, OTHER ==
[2019-04-01] MEDS ORDERED: IOVERSOL 320 100 ML VIAL IVP ONE ×3 (13:53→14:08)
--- NOTE | 2019-04-01 14:41 | CT Report ---
Reason: HYPOXIA,DYSPNEA ON EXERTION Procedure Date: 04/01/2019 Accession Number: [id number] / [id number] Procedure: CT - ANGIO CHEST W/WO CPT Code: FULL RESULT: EXAM: CT ANGIOGRAM CHEST EXAM DATE: 04/01/2019 02:14 PM. CLINICAL HISTORY: HYPOXIA,DYSPNEA ON EXERTION. COMPARISON: None. TECHNIQUE: Routine helical imaging was performed through the chest in the pulmonary arterial phase. IV Contrast: OPTI 320 80ML. Reconstructions: Sagittal, coronal, and 3D MIP. In accordance with CT protocol optimization, one or more of the following dose reduction techniques were utilized for this exam: automated exposure control, adjustment of mA and/or KV based on patient size, or use of iterative reconstructive technique. FINDINGS: Pulmonary Arteries: Diagnostic quality: Adequate through the segmental arteries. No evidence for acute or chronic pulmonary emboli. RV/LV is within normal limits. There is no interventricular septal bowing. There is no reflux of contrast material in the IVC. Lungs/Pleura: Small calcified granulomata. Mild bibasilar atelectasis and bronchiectasis. No consolidation, effusion, or pneumothorax. Mediastinum: Overall heart size within normal limits. No pericardial effusion. No coronary artery calcifications. No lymphadenopathy. Thoracic Aorta: Unremarkable. Upper Abdomen: Probable left renal cyst. Bilateral perinephric fat stranding. Other: None. IMPRESSION: 1. Negative for pulmonary embolism at this time. Unremarkable aorta. 2. Old granulomatous disease and other chronic or incidental findings. RADIA The call report notification system was initiated by Dr. Salo Del Toro at 02:40 PM on 04/01/2019.
== END 2019-04-01 13:39 | disposition home or self-care (01) ==
LOC: DI 13:38
PROVIDERS: ATTEND Family Medicine
DX: R09.02 Hypoxemia (principal); R06.09 Other forms of dyspnea
CPT/HCPCS: 71275; Q9967

== ENCOUNTER 2019-04-08 09:17 | Outpatient (CLI) | payer MEDICARE, OTHER ==
[~2019-04-08 09:17] MED LIST: ALBUTEROL NEB 2.5 MG/3 ML INH SCH
== END 2019-04-08 09:18 | disposition home or self-care (01) ==
LOC: RT 09:17 → DI 09:18
PROVIDERS: ATTEND Family Medicine
DX: R09.02 Hypoxemia (principal); R06.09 Other forms of dyspnea; R61 Generalized hyperhidrosis
CPT/HCPCS: 93306; 94060; 94729

== ENCOUNTER 2019-06-10 09:21 | Outpatient (CLI) | payer MEDICARE, OTHER ==
[2019-06-10 13:01] LABS: HEMOGLOBIN A1C 0.99 g/dL; HEMOGLOBIN A1C % 8.6 % (4.6-6.2)
[2019-06-10 13:36] LABS: ALBUMIN 3.6 g/dL (3.2-5.5); ALBUMIN/GLOBULIN RATIO 0.9 (1.0-2.2); ALKALINE PHOSPHATASE 70 IU/L (42-121); ALT ALANINE AMINOTRANSFERASE 18 IU/L (10-60); AST ASPARTATE AMINOTRANSFERASE 22 IU/L (10-42); BILIRUBIN,TOTAL 0.7 mg/dL (0.2-1.0); BUN - BLOOD UREA NITROGEN 19 mg/dL (6-20); CALCIUM 9.1 mg/dL (8.5-10.3); CARBON DIOXIDE - CO2 27 mmol/L (21-32); CHLORIDE 106 mmol/L (101-111); CHOL/HDL RATIO 4.6 (<5.0); CHOLESTEROL 119 mg/dL; CREATININE 1.2 mg/dL (0.6-1.2); GFR - MDRD 59 (>89); GLUCOSE 150 mg/dL (70-100); HDL CHOLESTEROL 26 mg/dL; LDL CHOLESTEROL,CALCULATED 74 mg/dL; LDL/HDL RATIO 2.8 (<3.6); SODIUM 139 mmol/L (135-145); TOTAL PROTEIN 7.7 g/dL (6.7-8.2); VLDL CHOLESTEROL 19 mg/dL
== END 2019-06-10 23:59 | disposition home or self-care (01) ==
LOC: LAB.WCP 09:21
PROVIDERS: ATTEND Physician Assistant Medical
DX: E11.40 Type 2 diabetes mellitus with diabetic neuropathy, unspecified (principal)
CPT/HCPCS: 36415; 80053; 80061; 83036; 83721

== ENCOUNTER 2019-09-02 08:20 | Outpatient (CLI) | payer MEDICARE, OTHER ==
[2019-09-02 13:26] LABS: CALCIUM 9.1 mg/dL (8.5-10.3); CREATININE 1.2 mg/dL (0.6-1.2)
[2019-09-02 14:09] LABS: HB2 TOTAL 13.8 g/dL; HEMOGLOBIN A1C 0.94 g/dL; HEMOGLOBIN A1C % 8.4 % (4.6-6.2)
== END 2019-09-02 23:59 | disposition home or self-care (01) ==
LOC: LAB.WCP 08:20
PROVIDERS: ATTEND Physician Assistant Medical
DX: E11.40 Type 2 diabetes mellitus with diabetic neuropathy, unspecified (principal)
CPT/HCPCS: 36415; 80048; 83036

== ENCOUNTER 2019-12-07 07:54 | Outpatient (CLI) | payer MEDICARE, OTHER ==
[2019-12-07 12:48] LABS: ALBUMIN 3.7 g/dL (3.2-5.5); ALKALINE PHOSPHATASE 59 IU/L (42-121); ALT ALANINE AMINOTRANSFERASE 17 IU/L (10-60); AST ASPARTATE AMINOTRANSFERASE 24 IU/L (10-42); BILIRUBIN,TOTAL 0.7 mg/dL (0.2-1.0); BUN - BLOOD UREA NITROGEN 17 mg/dL (6-20); CALCIUM 8.8 mg/dL (8.5-10.3); CARBON DIOXIDE - CO2 26 mmol/L (21-32); CHLORIDE 106 mmol/L (101-111); CHOL/HDL RATIO 4.7 (<5.0); CHOLESTEROL 127 mg/dL; CREATININE 1.2 mg/dL (0.6-1.2); GFR - MDRD 59 (>89); GLUCOSE 127 mg/dL (70-100); HDL CHOLESTEROL 27 mg/dL; LDL CHOLESTEROL,CALCULATED 83 mg/dL; LDL/HDL RATIO 3.1 (<3.6); SODIUM 139 mmol/L (135-145); TOTAL PROTEIN 7.3 g/dL (6.7-8.2); VLDL CHOLESTEROL 17 mg/dL
[2019-12-07 12:54] LABS: HEMOGLOBIN A1C 0.68 g/dL; HEMOGLOBIN A1C % 6.6 % (4.6-6.2)
== END 2019-12-07 23:59 | disposition home or self-care (01) ==
LOC: LAB.WCP 07:54
PROVIDERS: ATTEND Physician Assistant Medical
DX: E11.49 Type 2 diabetes mellitus with other diabetic neurological complication (principal)
CPT/HCPCS: 36415; 80053; 80061; 83036; 83721

== ENCOUNTER 2020-03-07 08:00 | Outpatient (CLI) | payer MEDICARE, OTHER ==
[2020-03-07 11:52] LABS: CREATININE 1.2 mg/dL (0.6-1.2)
[2020-03-07 12:07] LABS: HB2 TOTAL 14.3 g/dL; HEMOGLOBIN A1C 0.81 g/dL; HEMOGLOBIN A1C % 7.3 % (4.6-6.2)
== END 2020-03-07 23:59 | disposition home or self-care (01) ==
LOC: LAB.WCP 08:00
PROVIDERS: ATTEND Physician Assistant Medical
DX: E11.40 Type 2 diabetes mellitus with diabetic neuropathy, unspecified (principal)
CPT/HCPCS: 36415; 80048; 83036

== ENCOUNTER 2020-05-23 09:30 | Outpatient (CLI) | payer MEDICARE, OTHER | END 2020-05-23 23:59 | disposition home or self-care (01) | LOC: COV 09:30 | PROVIDERS: ATTEND Internal Medicine | DX: R06.02 Shortness of breath (principal); Z20.828 Contact with and (suspected) exposure to other viral communicable diseases ==

== ENCOUNTER 2020-06-06 08:08 | Outpatient (CLI) | payer MEDICARE, OTHER ==
[2020-06-06 12:24] LABS: ALBUMIN 3.5 g/dL (3.2-5.5); ALBUMIN/GLOBULIN RATIO 0.9 (1.0-2.2); ALKALINE PHOSPHATASE 72 IU/L (42-121); ALT ALANINE AMINOTRANSFERASE 23 IU/L (10-60); AST ASPARTATE AMINOTRANSFERASE 30 IU/L (10-42); BILIRUBIN,TOTAL 0.7 mg/dL (0.2-1.0); BUN - BLOOD UREA NITROGEN 19 mg/dL (6-20); CARBON DIOXIDE - CO2 21 mmol/L (21-32); CHLORIDE 105 mmol/L (101-111); CHOL/HDL RATIO 4.1 (<5.0); CHOLESTEROL 120 mg/dL; CREATININE 1.3 mg/dL (0.6-1.2); GLUCOSE 129 mg/dL (70-100); HDL CHOLESTEROL 29 mg/dL; LDL CHOLESTEROL,CALCULATED 72 mg/dL; LDL/HDL RATIO 2.5 (<3.6); SODIUM 137 mmol/L (135-145); TOTAL PROTEIN 7.5 g/dL (6.7-8.2); VLDL CHOLESTEROL 19 mg/dL
[2020-06-06 12:32] LABS: THYROID STIMULATING HORMONE 2.44 uIU/mL (0.34-5.60)
[2020-06-06 12:34] LABS: FREE T3 3.28 pg/mL (2.5-3.9)
[2020-06-06 12:35] LABS: FREE T4 (FREE THYROXINE) 0.78 ng/dL (0.58-1.64)
[2020-06-06 12:45] LABS: HEMOGLOBIN A1c% 7.2 % (4.27-6.07)
== END 2020-06-06 23:59 | disposition home or self-care (01) ==
LOC: LAB.WCP 08:08
PROVIDERS: ATTEND Family Medicine
DX: R06.02 Shortness of breath (principal); J84.10 Pulmonary fibrosis, unspecified; G47.30 Sleep apnea, unspecified; E66.01 Morbid (severe) obesity due to excess calories; E11.49 Type 2 diabetes mellitus with other diabetic neurological complication
CPT/HCPCS: 36415; 80053; 80061; 83036; 83721; 83880; 84439; 84443; 84481

== ENCOUNTER 2020-06-13 16:54 | Outpatient (CLI) | payer MEDICARE, OTHER | END 2020-06-13 16:55 | disposition home or self-care (01) | LOC: COV 16:54 | PROVIDERS: ATTEND Internal Medicine | DX: Z01.812 Encounter for preprocedural laboratory examination (principal); G47.33 Obstructive sleep apnea (adult) (pediatric); R06.02 Shortness of breath; Z20.828 Contact with and (suspected) exposure to other viral communicable diseases ==

== ENCOUNTER 2020-08-29 08:23 | Outpatient (CLI) | payer MEDICARE, OTHER ==
[2020-08-29 09:16] VITALS: BP 126/76
--- NOTE | 2020-08-29 09:16 | SLEEP CARE CONSULTATION ---
Information from patient questionnaire entered by Jonna Escobar. I have reviewed and concur with the information entered by Jonna Escobar. This document represents the service I personally performed and the decisions made by , Laura Justice ARNP. History of Present Illness Service Date and Time: 08/29/2020 08 Reason for Visit: New patient, Previously diagnosed sleep apnea (very severe - AHI - 61.7), sleep apnea on CPAP therapy, Re-establish care Usual bedtime: 10 PM Observed to quit breathing while asleep: Yes Sleeps alone due to snoring: No Number of times waking at night: 2 Reasons for waking at night: reports: Bathroom. denies: Choking, Snoring, Gasping for air Toss, Turn, or Twitch while sleeping: No Recalls having dreams: Yes Usually gets out of bed at: 6 am Feels refreshed in the morning: Yes Morning headache: No Sleepy or fatigued during the day: Yes Ever fallen asleep while driving: No Takes day naps: Yes Dreams during day naps: No Prior sleep studies: Yes Year and Where: 2009 - [facility] Type of Sleep Study: Polysomnography (Split-night) Additional HPI information: [place] was diagnosed to have very severe, AHI 61.7, obstructive sleep apnea-hypopnea syndrome and returned today for CPAP therapy for re-establishment of care. - Parasomnia Symptoms Ever been unable to move upon waking from sleep: No Walks in sleep: No Talks in sleep: No Ever acted out dreams in sleep: No Ever felt weak in the knees when startled or emotional: No Bothered by creepy, crawly, restless sensations in legs: No Problems with memory or concentration: No CPAP Compliance Data - Data Reviewed with Patient Average duration of nightly device use: 8 hr 31 min Compliance rate %: 99.4 (180 days) Current pressure setting (cmH2O): 10 Humidity settin Heated hose settin Average residual AHI: 2.9 Central apnea: 0.2 Obstructive apnea: 1.0 Average large leak: 7 min 57 sec Compliance data discussion: Patient is unsure of the name of his DME supplier but states it is in [place] and he is getting supplies as needed. He is using a full face mask that goes under the nose and over the mouth ([employer]). He has a back up mask. He last changed his cushion about 1 week ago. Subjective Patient concerns: reports: dry mouth, nose, throat (dry mouth sometimes, better with adjusting humidity setting). denies: aerophagia, mask discomfort, air blowing in eyes, mask leak noise, condensation in mask/hose, nasal congestion, epistaxis, other Observed to snore while using device: No Current pressure setting perceived as: comfortable On therapy, patient: reports: sleeping better, awakening more refreshed, being more awake and alert during the day, more rested overall. denies: drowsiness while driving Initial Daisy Sleepiness Scale score: 1 (in 2009) Current Daisy Sleepiness Scale score: 8 Past Medical History Past Medical History: reports: Hypertension, Diabetes, Arthritis, Other (Pulmonary fibroses). denies: Congestive Heart Failure, Coronary Heart Disease, Arrythmia, Anxiety, Depression Social History The patient's occupation is a RETIRED. Patient is and lives in [place]. Have you smoked in the past 12 months: No Alcohol use: Yes Caffeine use: Yes Family History Family history of sleep disordered breathing: No Allergies and Home Medications Drug allergies reviewed: Yes (codiene, lisinopril) Home medication list reviewed: Yes (about the same, off the metformin) Review of Systems Cardiovascular: reports: high blood pressure Respiratory: reports: shortness of breath Gastrointestinal: reports: heartburn Urinary: reports: frequency Psychiatric: reports: claustrophobia Ear/Nose/Throat: reports: wisdom teeth removed Physical Exam Blood Pressure: 126/76 Cuff size: wrist Heart Rate: 70 O2 Saturation: 97 Height: 5 ft 10 in Weight: 318 lb Body Mass Index: 45.6 BMI Classification: Morbidly Obese Neck circumference: 18 (inches) HEENT: No craniofacial malformation Nostrils: patent to airflow Turbinates: normal Mouth and throat: narrow oropharynx Hard palate: arched Uvula visualization: 25% Mallampati Class III Tongue: enlarged in size with teeth paredes on lateral edges Tonsils: absent bilaterally Chin and jaw: normal size and position Neck: normal w/o lymphadenopathy or thyromegaly Heart: regular rate and rhythm Lungs: clear bilaterally Impression and Plan 1. Obstructive Sleep Apnea-Hypopnea Syndrome, very severe, with good treatment compliance and good apnea control. On CPAP therapy, the patient has better sleep quality and is more rested overall. He has no problems with CPAP use. He states his machine is working well and he is not sure when it was last updated. He was last seen in 2017 and that is when his machine setup is dated. Patient has gained weight since his last appointment. Currently patients BMI is 45.6. Obesity increases the risk of apnea, CPAP pressure requirements and overall health risks especially cardiovascular and diabetes. Thus patient is advised to lose weight. Weight loss can be done with reducing portion size, reducing refined foods and balancing content with vegetables, fruit and whole grain foods. Patient's apnea severity and rationale for treatment to reduce apnea, improve sleep quality and reduce cardiovascular and cerebrovascular events was reviewed. I also reviewed the benefit of consistent device use of CPAP for hypertension and diabetes. * Continue auto CPAP pressure at 10 cmH2O * Notify me if snoring with mask or feeling that the pressure is too much or too little * Attempt to lose weight * Call this office if any problems using CPAP * Return for follow up in 1 year, or sooner if concerns arise Counseling Topics: Spare mask, Weight loss health impact Visit Type: In Office Time Spent with Patient (minutes): 30 Provider Statement: I spent 100% of the Face to Face Visit with the patient with greater than 50% spent counseling the patient and coordination of care.
== END 2020-08-29 08:24 | disposition home or self-care (01) ==
LOC: SC 08:23
PROVIDERS: ATTEND Nurse Practitioner Family
DX: G47.33 Obstructive sleep apnea (adult) (pediatric) (principal); E66.01 Morbid (severe) obesity due to excess calories; Z68.42 Body mass index [BMI] 45.0-49.9, adult
CPT/HCPCS: 99203; G0463; 99212

== ENCOUNTER 2020-09-05 09:24 | Outpatient (CLI) | payer MEDICARE, OTHER ==
[2020-09-05 18:53] LABS: HEMOGLOBIN A1c% 7.2 % (4.27-6.07)
[2020-09-05 18:54] LABS: CREATININE 1.2 mg/dL (0.6-1.2)
[2020-09-05 19:11] LABS: CREATININE,URINE 177.4 mg/dL; MICROALBUM/CREATININE RATIO,UR 1.7 ug/mg (<30.0); MICROALBUMIN,URINE 0.3 mg/dL (0-300.0)
[2020-09-05 19:17] LABS: FOLATE 9.88 ng/mL (5.90 - >24.8)
[2020-09-08 19:58] LABS: ALBUMIN 3.5 g/dL (3.8-4.8); ALPHA 1 GLOBULIN 0.3 g/dL (0.2-0.3); ALPHA 2 GLOBULIN 0.8 g/dL (0.5-0.9); BETA 1 GLOBULIN 0.5 g/dL (0.4-0.6); BETA 2 GLOBULIN 0.5 g/dL (0.2-0.5); GAMMA GLOBULIN 1.3 g/dL (0.8-1.7)
[2020-09-11 05:32] LABS: METHYLMALONIC ACID 255 nmol/L (87-318)
== END 2020-09-05 23:59 | disposition home or self-care (01) ==
LOC: LAB.WCP 09:24
PROVIDERS: ATTEND Physician Assistant Medical
DX: E11.40 Type 2 diabetes mellitus with diabetic neuropathy, unspecified (principal)
CPT/HCPCS: 36415; 80048; 82043; 82570; 82607; 82746; 83036; 83921; 84155; 84165

== ENCOUNTER 2020-12-06 08:00 | Outpatient (CLI) | payer MEDICARE, OTHER ==
[2020-12-06 12:26] LABS: ESTIMATED AVERAGE GLUCOSE 183 mg/dL (70-100)
[2020-12-06 12:35] LABS: ALBUMIN 3.6 g/dL (3.2-5.5); ALBUMIN/GLOBULIN RATIO 0.9 (1.0-2.2); ALKALINE PHOSPHATASE 65 IU/L (42-121); ALT ALANINE AMINOTRANSFERASE 23 IU/L (10-60); AST ASPARTATE AMINOTRANSFERASE 25 IU/L (10-42); BILIRUBIN,TOTAL 0.9 mg/dL (0.2-1.0); BUN - BLOOD UREA NITROGEN 15 mg/dL (6-20); CARBON DIOXIDE - CO2 24 mmol/L (21-32); CHLORIDE 106 mmol/L (101-111); CHOL/HDL RATIO 4.9 (<5.0); CHOLESTEROL 136 mg/dL; CREATININE 1.2 mg/dL (0.6-1.2); GFR - MDRD 58 (>89); GLUCOSE 165 mg/dL (70-100); HDL CHOLESTEROL 28 mg/dL; LDL CHOLESTEROL,CALCULATED 83 mg/dL; POTASSIUM 4.1 mmol/L (3.5-5.0); SODIUM 138 mmol/L (135-145); TOTAL PROTEIN 7.6 g/dL (6.7-8.2); TRIGLYCERIDES 126 mg/dL; VLDL CHOLESTEROL 25 mg/dL
== END 2020-12-06 23:59 | disposition home or self-care (01) ==
LOC: LAB.WCP 08:00
PROVIDERS: ATTEND Physician Assistant Medical
DX: E11.49 Type 2 diabetes mellitus with other diabetic neurological complication (principal); E53.8 Deficiency of other specified B group vitamins
CPT/HCPCS: 36415; 80053; 80061; 82607; 83036; 83721

== ENCOUNTER 2021-03-08 08:00 | Outpatient (CLI) | payer MEDICARE, OTHER ==
[2021-03-08 12:18] LABS: ESTIMATED AVERAGE GLUCOSE 171 mg/dL (70-100); HEMOGLOBIN A1c% 7.6 % (4.27-6.07)
[2021-03-08 12:36] LABS: CALCIUM 9.2 mg/dL (8.5-10.3); CREATININE 1.2 mg/dL (0.6-1.2); POTASSIUM 4.4 mmol/L (3.5-5.0)
== END 2021-03-08 23:59 | disposition home or self-care (01) ==
LOC: LAB.WCP 08:00
PROVIDERS: ATTEND Physician Assistant Medical
DX: E11.49 Type 2 diabetes mellitus with other diabetic neurological complication (principal)
CPT/HCPCS: 36415; 80048; 83036

== ENCOUNTER 2021-06-06 08:39 | Outpatient (CLI) | payer MEDICARE, OTHER ==
[2021-06-06 12:07] LABS: ALBUMIN 3.7 g/dL (3.2-5.5); ALBUMIN/GLOBULIN RATIO 0.9 (1.0-2.2); ALKALINE PHOSPHATASE 62 IU/L (42-121); ALT ALANINE AMINOTRANSFERASE 24 IU/L (10-60); AST ASPARTATE AMINOTRANSFERASE 30 IU/L (10-42); BILIRUBIN,TOTAL 1.1 mg/dL (0.2-1.0); BUN - BLOOD UREA NITROGEN 16 mg/dL (6-20); CALCIUM 9.1 mg/dL (8.5-10.3); CARBON DIOXIDE - CO2 27 mmol/L (21-32); CHLORIDE 108 mmol/L (101-111); CHOL/HDL RATIO 4.5 (<5.0); CHOLESTEROL 130 mg/dL; CREATININE 1.3 mg/dL (0.6-1.2); GFR - MDRD 53 (>89); GLUCOSE 108 mg/dL (70-100); HDL CHOLESTEROL 29 mg/dL; LDL CHOLESTEROL,CALCULATED 81 mg/dL; LDL/HDL RATIO 2.8 (<3.6); POTASSIUM 4.2 mmol/L (3.5-5.0); SODIUM 146 mmol/L (135-145); TOTAL PROTEIN 7.7 g/dL (6.7-8.2); TRIGLYCERIDES 100 mg/dL; VLDL CHOLESTEROL 20 mg/dL
[2021-06-06 20:33] LABS: ESTIMATED AVERAGE GLUCOSE 157 mg/dL (70-100); HEMOGLOBIN A1c% 7.1 % (4.27-6.07)
== END 2021-06-06 23:59 | disposition home or self-care (01) ==
LOC: LAB.WCP 08:39
PROVIDERS: ATTEND Physician Assistant Medical
DX: E11.49 Type 2 diabetes mellitus with other diabetic neurological complication (principal)
CPT/HCPCS: 36415; 80053; 80061; 83036; 83721

== ENCOUNTER 2021-10-02 08:00 | Outpatient (CLI) | payer MEDICARE, OTHER ==
[2021-10-02 12:10] LABS: CALCIUM 9.2 mg/dL (8.5-10.3); CREATININE 1.2 mg/dL (0.6-1.2); POTASSIUM 3.9 mmol/L (3.5-5.0)
[2021-10-02 12:13] LABS: ESTIMATED AVERAGE GLUCOSE 157 mg/dL (70-100); HEMOGLOBIN A1c% 7.1 % (4.27-6.07)
== END 2021-10-02 23:59 ==
LOC: LAB.WCP 08:00
PROVIDERS: ATTEND Physician Assistant Medical
DX: E11.49 Type 2 diabetes mellitus with other diabetic neurological complication (principal)
CPT/HCPCS: 36415; 80048; 83036

== ENCOUNTER 2022-07-10 09:04 | Outpatient (CLI) | payer MEDICARE, OTHER ==
[2022-07-10 12:32] LABS: CALCIUM 9.4 mg/dL (8.5-10.3); CREATININE 1.2 mg/dL (0.6-1.2); POTASSIUM 4.3 mmol/L (3.5-5.0)
== END 2022-07-10 09:05 | disposition home or self-care (01) ==
LOC: LAB.N 09:04
PROVIDERS: ATTEND Internal Medicine Cardiovascular Disease
DX: I50.32 Chronic diastolic (congestive) heart failure (principal)
CPT/HCPCS: 36415; 80048

== ENCOUNTER 2022-08-10 18:13 | Outpatient (CLI) | payer MEDICARE, OTHER | END 2022-08-10 18:14 | disposition EMS.NT | LOC: EMS 18:13 | DX: R05.9 Cough, unspecified (principal); R53.81 Other malaise ==

== ENCOUNTER 2022-08-14 17:44 | Outpatient (CLI) | payer MEDICARE, OTHER | END 2022-08-14 17:45 | disposition critical access hospital (66) | LOC: EMS 17:44 | DX: R06.00 Dyspnea, unspecified (principal); R05.9 Cough, unspecified; R53.1 Weakness; R41.0 Disorientation, unspecified | CPT/HCPCS: A0425; A0429 ==

== ENCOUNTER 2022-08-14 18:01 | Emergency (ER) | payer MEDICARE, OTHER ==
--- NOTE | 2022-08-14 18:15 | ED Physician Documentation ---
History of Present Illness - Stated complaint Stated Complaint: DIFFICULTY BREATHING - History obtained from History obtained from: Patient - Additonal information Additional information: 81-year-old gentleman with history of pulmonary fibrosis, presents with cough and shortness of breath for the last month. He thinks he may have had a flulike illness and also has a runny nose but denies sore throat or fevers. Denies pedal edema, calf pain, or chest pains. Review of Systems Ten Systems: 10 systems reviewed and negative Constitutional: reports: Fatigue. denies: Fever, Chills Nose: reports: Rhinorrhea / runny nose Respiratory: reports: Dyspnea, Cough PD PAST MEDICAL HISTORY - Past Medical History Cardiovascular: Hypertension, High cholesterol, Coronary artery disease Respiratory: Sleep apnea, CPAP use Endocrine/Autoimmune: Type 2 diabetes GI: GERD, Colon polyps, Chronic constipation : Benign prostate hypertrophy HEENT: Chronic vision loss, Chronic hearing loss Psych: Depression, Anxiety, Panic attacks Musculoskeletal: Osteoarthritis, Chronic back pain, Other Derm: Eczema - Past Surgical History General: Colonoscopy Ortho: Knee replacement, Shoulder arthroplasty Cardiovascular: Cardiac catheterization HEENT: Other - Present Medications Home Medications: Ambulatory Orders Medication Instructions Recorded Confirmed Escitalopram Oxalate 20 mg PO QPM 01/05/18 08/14/22 Insulin Glargine [Lantus Solostar] 60 unit SUBQ DAILY 01/05/18 08/14/22 Losartan Potassium 100 mg PO DAILY 01/05/18 08/14/22 Pantoprazole Sodium 20 mg PO QDAC 01/05/18 08/14/22 atenoloL [Atenolol] 50 mg PO QPM 01/05/18 08/14/22 Aspirin [Aspirin EC] 81 mg PO DAILY 01/28/19 08/14/22 Dulaglutide [Trulicity] 1.5 mg SQ OAW 01/28/19 08/14/22 Simvastatin [Zocor] 40 mg PO DAILY 01/28/19 08/14/22 Benzonatate [Tessalon] 200 mg PO TID #20 cap 08/14/22 Doxycycline Hyclate 100 mg PO BID #14 cap 08/14/22 Glimepiride [Amaryl] 2 mg PO 0800 08/14/22 08/14/22 Mecobalamin [B12 Active] 1,000 mcg PO DAILY 08/14/22 08/14/22 SITagliptin [Januvia] 100 mg PO DAILY 08/14/22 08/14/22 Spironolactone [Aldactone] 25 mg PO DAILY 08/14/22 08/14/22 predniSONE [Deltasone] 20 mg PO [id number] #21 tab 08/14/22 - Allergies Allergies/Adverse Reactions: Allergies Allergy/AdvReac Type Severity Reaction Status Date / Time codeine Allergy Hallucinati Verified 11/09/18 15:32 ons lisinopril AdvReac cough Verified 02/03/19 11:11 - Social History Does the pt smoke?: No Smoking Status: Never smoker - POLST Patient has POLST: No PD ED PE NORMAL - Vitals Vital signs reviewed: Yes - General General: Alert and oriented X 3, No acute distress - HEENT HEENT: PERRL, EOMI - Neck Neck: Supple, no meningeal sign, No bony TTP - Cardiac Cardiac: Other (Irregularly irregular without murmur) - Respiratory Respiratory: Other (Coarse bibasilar crackles consistent with pulmonary fibrosis and occasional coughing.) - Abdomen Abdomen: Soft, Non tender - Back Back: No CVA TTP, No spinal TTP - Derm Derm: Normal color, Warm and dry - Extremities Extremities: No edema, No calf tenderness / cord - Neuro Neuro: Alert and oriented X 3, Normal speech Results - Vitals Vitals: Vital Signs - 24 hr 08/14/22 08/14/22 08/14/22 18:09 18:45 18:49 Temperature 36.9 C Heart Rate 96 95 92 Respiratory 24 20 22 Rate Blood Pressure 166/99 H 171/71 H O2 Saturation 96 97 Oxygen O2 Source Room air - EKG (time done) 1824 Rate: Rate (enter#) (91) Rhythm: NSR [place]: Normal Intervals: Prolonged QT Ischemia: Non specific changes. No: ST elevation c/w ischemia, ST depression - Labs Labs: Laboratory Tests 08/14/22 08/14/22 08/14/22 18:25 18:25 18:25 WBC 11.0 H RBC 4.88 Hgb 14.6 Hct 43.9 MCV 90.0 MCH 29.9 MCHC 33.3 RDW 13.0 Plt Count 269 MPV 10.5 Neut # (Auto) Not Reportable Lymph # (Auto) Not Reportable Thayer # (Auto) Not Reportable Eos # (Auto) Not Reportable Baso # (Auto) Not Reportable Absolute Nucleated RBC Not Reportable Total Counted 100 Band Neuts % (Manual) 0 Abnorm Lymph % (Manual) 0 Nucleated RBC % Not Reportable Neutrophils # (Manual) 7.0 H Lymphocytes # (Manual) 2.2 Monocytes # (Manual) 1.4 H Eosinophils # (Manual) 0.3 Basophils # (Manual) 0.0 Differential Comment MANUAL DIFFERENTIAL WBC Morphology NORMAL APPEARANCE Platelet Estimate NORMAL (130-450,000) Platelet Morphology NORMAL APPEARANCE RBC Morph Micro Appear NORMAL APPEARANCE Sodium 133 L Potassium 3.8 Chloride 95 L Carbon Dioxide 27 Anion Gap 11.0 BUN 26 H Creatinine 1.2 Estimated GFR (MDRD) 58 L Glucose 220 H Calcium 8.8 Magnesium 2.5 Total Bilirubin 1.1 H AST 56 H ALT 37 Alkaline Phosphatase 62 B-Natriuretic Peptide 17 Total Protein 7.6 Albumin 3.1 L Globulin 4.5 H Albumin/Globulin Ratio 0.7 L Nasal Adenovirus (PCR) Nasal B. parapertussis DNA (PCR) Nasal Coronavir 229E PCR Nasal Coronavir HKU1 PCR Nasal Coronavir NL63 PCR Nasal Coronavir OC43 PCR Nasal Enterovir/Rhinovir PCR Nasal Influenza A H3 PCR Nasal Influenza B PCR Nasal Parainfluen 1 PCR Nasal Parainfluen 2 PCR Nasal Parainfluen 3 PCR Nasal Parainfluen 4 PCR Nasal RSV (PCR) Nasal B.pertussis DNA PCR Nasal C.pneumoniae (PCR) Michael Human Metapneumo PCR Nasal M.pneumoniae (PCR) Nasal SARS-CoV-2 (PCR) 08/14/22 18:25 WBC RBC Hgb Hct MCV MCH MCHC RDW Plt Count MPV Neut # (Auto) Lymph # (Auto) Thayer # (Auto) Eos # (Auto) Baso # (Auto) Absolute Nucleated RBC Total Counted Band Neuts % (Manual) Abnorm Lymph % (Manual) Nucleated RBC % Neutrophils # (Manual) Lymphocytes # (Manual) Monocytes # (Manual) Eosinophils # (Manual) Basophils # (Manual) Differential Comment WBC Morphology Platelet Estimate Platelet Morphology RBC Morph Micro Appear Sodium Potassium Chloride Carbon Dioxide Anion Gap BUN Creatinine Estimated GFR (MDRD) Glucose Calcium Magnesium Total Bilirubin AST ALT Alkaline Phosphatase B-Natriuretic Peptide Total Protein Albumin Globulin Albumin/Globulin Ratio Nasal Adenovirus (PCR) NOT DETECTED Nasal B. parapertussis DNA (PCR) NOT DETECTED Nasal Coronavir 229E PCR NOT DETECTED Nasal Coronavir HKU1 PCR NOT DETECTED Nasal Coronavir NL63 PCR NOT DETECTED Nasal Coronavir OC43 PCR NOT DETECTED Nasal Enterovir/Rhinovir PCR NOT DETECTED Nasal Influenza A H3 PCR DETECTED A Nasal Influenza B PCR NOT DETECTED Nasal Parainfluen 1 PCR NOT DETECTED Nasal Parainfluen 2 PCR NOT DETECTED Nasal Parainfluen 3 PCR NOT DETECTED Nasal Parainfluen 4 PCR NOT DETECTED Nasal RSV (PCR) NOT DETECTED Nasal B.pertussis DNA PCR NOT DETECTED Nasal C.pneumoniae (PCR) NOT DETECTED Michael Human Metapneumo PCR NOT DETECTED Nasal M.pneumoniae (PCR) NOT DETECTED Nasal SARS-CoV-2 (PCR) NOT DETECTED PD MEDICAL DECISION MAKING - ED course ED course: This is an 81-year-old gentleman who presents with a month worth of feeling ill but worse over the last week or so. Subsequently found to have influenza with a chest x-ray showing only chronic changes related to his known pulmonary fibrosis. We discussed his influenza A positivity and he is frustrated because he did get the flu shot this year. He has had flu symptoms for about a week now so I do not see any reason to give him Tamiflu although certainly if he had been here within the first 48 hours given his underlying lung disease that would have been considered. Given his comorbidities he is treated with antibiotics and steroids pending follow-up and given close return precautions. Departure - Departure Disposition: 01 Home, Self Care Clinical Impression: Bronchitis, Influenza A Condition: Good Record reviewed to determine appropriate education?: Yes Instructions: ED Flu Prescriptions: predniSONE [Deltasone] 20 mg PO [id number] #21 tab Doxycycline Hyclate 100 mg PO BID #14 cap Benzonatate [Tessalon] 200 mg PO TID #20 cap Comments: You are seen today for influenza. There is no evidence of pneumonia but I am treating you with antibiotics out of an abundance of caution given your underlying lung disease. Please return if worsening and follow-up with your doctor after the holiday weekend for recheck. Please note that I am not prescribing antiviral medications because they are not considered effective after the first 4 8 hours of illness. Please note that for the prescriptions, the only pharmacy open tomorrow on is the [facility] in [place]. Call your doctor to arrange a follow-up appointment, make the next available appointment. In the interim, return anytime if worse or if new symptoms develop.
[2022-08-14] MEDS ORDERED: IPRATROPIUM/ALBUTEROL 3 ML NEB INH STA (18:18)
[2022-08-14 18:34] LABS: BASOPHILS % (AUTO) 0.5 %; EOSINOPHILS % (AUTO) 3.3 %; HCT - HEMATOCRIT 43.9 % (42.0-52.0); HGB - HEMOGLOBIN 14.6 g/dL (14.0-18.0); LYMPHOCYTES % (AUTO) 16.1 %; MEAN CORPUSCULAR HEMOGLOBIN 29.9 pg (27.0-31.0); MEAN CORPUSCULAR HGB CONC 33.3 g/dL (32.0-36.0); MEAN PLATELET VOLUME 10.5 fL (7.4-11.4); MONOCYTES % (AUTO) 14.6 %; PLT - PLATELET COUNT 269 10^3/uL (130-450); RED BLOOD COUNT 4.88 10^6/uL (4.70-6.10)
[2022-08-14 18:36] LABS: ABNORMAL LYMPHS % (MANUAL) 0 %; BAND NEUTROPHILS % (MANUAL) 0 %
[2022-08-14 18:48] LABS: ALBUMIN 3.1 g/dL (3.2-5.5); ALBUMIN/GLOBULIN RATIO 0.7 (1.0-2.2); BILIRUBIN,TOTAL 1.1 mg/dL (0.2-1.0); CALCIUM 8.8 mg/dL (8.5-10.3); CREATININE 1.2 mg/dL (0.6-1.2); MAGNESIUM 2.5 mg/dL (1.7-2.8); POTASSIUM 3.8 mmol/L (3.5-5.0); TOTAL PROTEIN 7.6 g/dL (6.7-8.2)
--- NOTE | 2022-08-14 18:51 | XRAY Report ---
PROCEDURE: Chest 1 View X-Ray INDICATIONS: cough TECHNIQUE: One view of the chest was acquired. COMPARISON: 02/13/2019 FINDINGS: Surgical changes and devices: None. Lungs and pleura: Lung volumes are quite low. There is diffuse thickening of the interstitial markin gs. No visible dense consolidations, pleural effusion, or pneumothorax. Mediastinum: The heart shadow is obscured. Mediastinal contour is within normal limits given low cara g volumes. Central vasculature is indistinct. Bones and chest wall: No suspicious bony lesions. Overlying soft tissues appear unremarkable. IMPRESSION: Diffuse interstitial thickening bilaterally suggests interstitial edema or interstitial pneumonitis. Correlate with clinical indicators. Reviewed by: Nila Hudson MD on 08/14/2022 6:50 PM PST Approved by: Nila Hudson MD on 08/14/2022 6:50 PM PST Station ID: [id number]
[2022-08-14 19:10] LABS: DIFFERENTIAL COMMENT MANUAL DIFFERENTIAL; EOSINOPHILS # (MANUAL) 0.3 10^3/uL (0-0.7); LYMPHOCYTES # (MANUAL) 2.2 10^3/uL (1.5-3.5); LYMPHOCYTES % (MANUAL) 20 %; MONOCYTES # (MANUAL) 1.4 10^3/uL (0.0-1.0); PLATELET ESTIMATE, MANUAL NORMAL (130-450,000) (NORMAL); PLATELET MORPHOLOGY NORMAL APPEARANCE (NORMAL); RBC MORPHOLOGY (MULTIPLE) NORMAL APPEARANCE (NORMAL); WBC MORPHOLOGY (MULTIPLE) NORMAL APPEARANCE (NORMAL)
[2022-08-14 19:27] LABS: B. PARAPERTUSSIS- RESP PCR PAN NOT DETECTED; B. PERTUSSIS- RESP PCR PANEL NOT DETECTED; C. PNEUMONIAE- RESP PCR PANEL NOT DETECTED; CORONAVIRUS 229E-RESP PCR NOT DETECTED; CORONAVIRUS HKU1-RESP PCR NOT DETECTED; CORONAVIRUS NL63-RESP PCR NOT DETECTED; CORONAVIRUS OC43-RESP PCR NOT DETECTED; HUMAN METAPNEUMOVIRUS NOT DETECTED; INFLUENZA A H3- RESP PCR PANEL DETECTED; INFLUENZA B - RESP PCR PANEL NOT DETECTED; M. PNEUMONIAE- RESP PCR PANEL NOT DETECTED; PARAINFLUENZA VIRUS 1 NOT DETECTED; PARAINFLUENZA VIRUS 2 NOT DETECTED; PARAINFLUENZA VIRUS 3 NOT DETECTED; PARAINFLUENZA VIRUS 4 NOT DETECTED; RHINOVIRUS/ENTEROVIRUS NOT DETECTED; RSV- RESP PCR PANEL NOT DETECTED; SARS-CoV-2 -RESP PCR PANEL NOT DETECTED
[2022-08-14] MEDS ORDERED: DOXYCYCLINE 100 MG TABLET PO STA (19:39)
[2022-08-14] MEDS ORDERED: BENZONATATE 100 MG CAPSULE PO STA (19:39)
[2022-08-14] MEDS ORDERED: predniSONE 20 MG TABLET PO STA (19:39)
[2022-08-14 19:49] VITALS: BP 132/78
== END 2022-08-14 19:58 | disposition home or self-care (01) ==
LOC: EDUNIT# → ED 18:01
DX: J10.1 Influenza due to other identified influenza virus with other respiratory manifestations (principal); J84.10 Pulmonary fibrosis, unspecified; E11.9 Type 2 diabetes mellitus without complications; Z79.4 Long term (current) use of insulin; Z20.822 Contact with and (suspected) exposure to COVID-19
CPT/HCPCS: 36415; 71045; 80053; 83735; 83880; 85025; 87633; 93005; 94640; 99283; 99284; A9270; J7512

== ENCOUNTER 2022-09-30 08:29 | Outpatient (CLI) | payer MEDICARE, OTHER ==
[2022-09-30 13:03] LABS: ESTIMATED AVERAGE GLUCOSE 163 mg/dL (70-100); HEMOGLOBIN A1c% 7.3 % (4.27-6.07)
[2022-09-30 13:21] LABS: CALCIUM 8.9 mg/dL (8.5-10.3); CREATININE 1.1 mg/dL (0.6-1.2)
== END 2022-09-30 08:30 | disposition home or self-care (01) ==
LOC: LAB.N 08:29
PROVIDERS: ATTEND Physician Assistant Medical
DX: E11.49 Type 2 diabetes mellitus with other diabetic neurological complication (principal)
CPT/HCPCS: 36415; 80048; 83036

== ENCOUNTER 2022-10-02 08:00 | Outpatient (CLI) | payer MEDICARE, OTHER | END 2022-10-02 23:59 | disposition home or self-care (01) | LOC: LAB.N 08:00 | PROVIDERS: ATTEND Family Medicine | DX: H10.30 Unspecified acute conjunctivitis, unspecified eye (principal) | CPT/HCPCS: 87070; 87205 ==

== ENCOUNTER 2022-11-02 09:13 | Outpatient (CLI) | payer MEDICARE, OTHER | END 2022-11-02 09:14 | disposition critical access hospital (66) | LOC: EMS 09:13 | DX: R07.89 Other chest pain (principal); E11.65 Type 2 diabetes mellitus with hyperglycemia | CPT/HCPCS: A0425; A0429 ==

== ENCOUNTER 2022-11-02 09:35 | Emergency (ER) | payer MEDICARE, OTHER ==
[2022-11-02 10:08] LABS: BASOPHILS % (AUTO) 0.3 %; HCT - HEMATOCRIT 45.8 % (42.0-52.0); HGB - HEMOGLOBIN 15.1 g/dL (14.0-18.0); LYMPHOCYTES % (AUTO) 4.6 %; MEAN CORPUSCULAR HEMOGLOBIN 30.9 pg (27.0-31.0); MEAN CORPUSCULAR VOLUME 93.7 fL (80.0-94.0); MEAN PLATELET VOLUME 10.8 fL (7.4-11.4); MONOCYTES % (AUTO) 13.7 %; NEUTROPHILS % (AUTO) 80.5 %; PLT - PLATELET COUNT 194 10^3/uL (130-450); RED BLOOD COUNT 4.89 10^6/uL (4.70-6.10); RED CELL DISTRIBUTION WIDTH 13.6 % (12.0-15.0); WHITE BLOOD COUNT 26.5 x10^3/uL (4.8-10.8)
[2022-11-02 10:12] LABS: ABNORMAL LYMPHS % (MANUAL) 0 %; BAND NEUTROPHILS % (MANUAL) 0 %
--- NOTE | 2022-11-02 10:22 | XRAY Report ---
PROCEDURE: Chest 1 View X-Ray INDICATIONS: Chest Pain TECHNIQUE: One view of the chest was acquired. COMPARISON: CXR 08/14/2022. FINDINGS: Surgical changes and devices: None. Lungs and pleura: No pleural effusions or pneumothorax. Lungs are clear. Low lung volumes. Mediastinum: Mediastinal contours appear normal. Heart size is normal. Bones and chest wall: No suspicious bony lesions. Overlying soft tissues appear unremarkable. IMPRESSION: No acute cardiopulmonary abnormality. Low lung volumes. Reviewed by: Balwinder Wong MD on 11/02/2022 10:21 AM [facility] Approved by: Balwinder Wong MD on 11/02/2022 10:21 AM [facility] Station ID: [id number]
[2022-11-02 10:24] LABS: ALBUMIN 3.3 g/dL (3.2-5.5); ALBUMIN/GLOBULIN RATIO 0.8 (1.0-2.2); BILIRUBIN,TOTAL 2.3 mg/dL (0.2-1.0); CALCIUM 8.8 mg/dL (8.5-10.3); CREATININE 1.1 mg/dL (0.6-1.2); TOTAL PROTEIN 7.6 g/dL (6.7-8.2)
[2022-11-02 10:29] LABS: DIFFERENTIAL COMMENT MANUAL DIFFERENTIAL; LYMPHOCYTES # (MANUAL) 1.1 10^3/uL (1.5-3.5); LYMPHOCYTES % (MANUAL) 4 %; MONOCYTES # (MANUAL) 2.7 10^3/uL (0.0-1.0); NEUTROPHILS # (MANUAL) 22.8 10^3/uL (1.5-6.6); PLATELET ESTIMATE, MANUAL NORMAL (130-450,000) (NORMAL); PLATELET MORPHOLOGY NORMAL APPEARANCE (NORMAL); RBC MORPHOLOGY (MULTIPLE) NORMAL APPEARANCE (NORMAL)
--- NOTE | 2022-11-02 11:08 | ED Physician Documentation ---
PD HPI CHEST PAIN - Stated complaint Stated Complaint: SOA/CP - Chief complaint Chief Complaint: Cardiac - History obtained from History obtained from: Patient - History of Present Illness Timing - onset: How many days ago (4) Timing - onset during: Rest Timing - duration: Days (4) Timing - details: Gradual onset, Still present Quality: Sharp, Pain Location: Right chest Improved by: Rest Worsened by: Exertion, Inspiration, Palpation Associated symptoms: Shortness of air, Feeling faint / dizzy, General Weakness Similar symptoms before: Diagnosis (pneumonia, pulmonary fibrosis) Recently seen: Other (3 months ago for influenza with predinsone) - Additional information Additional information: 82-year-old the Timur Pelaez has a history of pulmonary fibrosis and he does not normally use inhalers. Today he is more short of breath than normal he has some pain in the right chest wall and he is weak. His weakness is what had him come to the emergency department today. He does have a history of type 2 diabetes he is incontinent of urine does not have a symptoms of urinary tract infection. He states that he has had shortness of breath with exertion continuously and he believes this is worse than normal. Review of Systems Constitutional: denies: Fever Eyes: denies: Decreased vision Ears: denies: Ear pain Nose: denies: Rhinorrhea / runny nose, Congestion Throat: denies: Sore throat Cardiac: reports: Chest pain / pressure. denies: Palpitations, Pedal edema, Calf pain Respiratory: reports: Dyspnea, Cough, Wheezing GI: denies: Abdominal Pain, Abdominal Swelling, Nausea, Vomiting : reports: Incontinent. denies: Dysuria, Frequency Skin: denies: Rash Musculoskeletal: denies: Neck pain, Back pain, Extremity pain Neurologic: reports: Generalized weakness. denies: Focal weakness, Numbness PD PAST MEDICAL HISTORY - Past Medical History Past Medical History: Yes Cardiovascular: Hypertension, High cholesterol, Coronary artery disease Respiratory: Sleep apnea, CPAP use, Other Neuro: None Endocrine/Autoimmune: Type 2 diabetes GI: GERD, Colon polyps, Chronic constipation : Benign prostate hypertrophy HEENT: Chronic vision loss, Chronic hearing loss Psych: Depression, Anxiety, Panic attacks Musculoskeletal: Osteoarthritis, Chronic back pain, Other Derm: Eczema Other Past Medical History: pulmonary fibrosis - Past Surgical History Past Surgical History: Yes General: Colonoscopy Ortho: Knee replacement, Shoulder arthroplasty Cardiovascular: Cardiac catheterization HEENT: Other - Present Medications Home Medications: Ambulatory Orders Medication Instructions Recorded Confirmed Escitalopram Oxalate 20 mg PO QPM 01/05/18 11/02/22 Insulin Glargine [Lantus Solostar] 60 unit SUBQ HS 01/05/18 11/02/22 Pantoprazole Sodium 20 mg PO QDAC 01/05/18 11/02/22 atenoloL [Atenolol] 50 mg PO QPM 01/05/18 11/02/22 Aspirin [Aspirin EC] 81 mg PO DAILY 01/28/19 11/02/22 Dulaglutide [Trulicity] 1.5 mg SQ Q7D 01/28/19 11/02/22 Simvastatin [Zocor] 40 mg PO HS 01/28/19 11/02/22 Glimepiride [Amaryl] 2 mg PO 0800 08/14/22 11/02/22 Mecobalamin [B12 Active] 1,000 mcg PO DAILY 08/14/22 11/02/22 SITagliptin [Januvia] 100 mg PO DAILY 08/14/22 11/02/22 Spironolactone [Aldactone] 25 mg PO DAILY 08/14/22 11/02/22 Albuterol Sulf [Ventolin Hfa 1 - 2 puffs INH Q4HR PRN #1 each 11/02/22 Inhaler] HYDROcod/ACETAM 5/325 [[place]ordova 5/325] 1 - 2 tablet PO Q6H PRN #14 tablet 11/02/22 predniSONE [Deltasone] 40 mg PO DAILY 5 Days #10 tab 11/02/22 - Allergies Allergies/Adverse Reactions: Allergies Allergy/AdvReac Type Severity Reaction Status Date / Time codeine Allergy Hallucinati Verified 11/02/22 09:46 ons lisinopril AdvReac cough Verified 11/02/22 09:46 - Social History Does the pt smoke?: No Smoking Status: Light tobacco smoker Does the pt drink ETOH?: Yes Does the pt have substance abuse?: No - Immunizations Immunizations are current?: Yes - POLST Patient has POLST: No PD ED PE NORMAL - Vitals Vital signs reviewed: Yes (tachypneic and hypertensive ) - General General: Alert and oriented X 3, No acute distress, Well developed/nourished - HEENT HEENT: Atraumatic, PERRL, EOMI - Neck Neck: Supple, no meningeal sign, No bony TTP - Cardiac Cardiac: No murmur, Other (tachy to 110) - Respiratory Respiratory: Other (tachypneic at rest diminshed breath sounds ) - Abdomen Abdomen: Soft, Non tender, Other (obese) - Back Back: No CVA TTP, No spinal TTP - Derm Derm: Normal color, Warm and dry, No rash - Extremities Extremities: No deformity, No edema - Neuro Neuro: Alert and oriented X 3, manager category 2-12 intact, No motor deficit, No sensory deficit, Normal speech Eye Opening: Spontaneous Motor: Obeys Commands Verbal: Oriented GCS Score: 15 - Psych Psych: Normal mood, Normal affect Results - Vitals Vitals: Vital Signs - 24 hr 11/02/22 11/02/22 11/02/22 09:46 10:19 11:46 Temperature 37.6 C Heart Rate 99 99 101 H Respiratory 28 H 28 H 24 Rate Blood Pressure 162/83 H 144/73 H 139/90 H O2 Saturation 96 96 98 If not protocol 2 2 : Oxygen Flow, liters/minute 11/02/22 11/02/22 11:55 13:00 Temperature Heart Rate 99 91 Respiratory 21 24 Rate Blood Pressure 149/87 H O2 Saturation 99 If not protocol : Oxygen Flow, liters/minute Oxygen O2 Source Room air - EKG (time done) 9945 Rate: Rate (enter#) (97) Rhythm: NSR Ischemia: Normal ST segments, Other (flat T waves inferior) Other comments: Other comments (early transition ) Compare to prior EKG: Unchanged from prior EKG (SPT 08-14-22 no changes) Computer interpretation: Agree with computer - Labs Labs: Laboratory Tests 11/02/22 11/02/22 11/02/22 10:03 10:03 10:03 WBC 26.5 H RBC 4.89 Hgb 15.1 Hct 45.8 MCV 93.7 MCH 30.9 MCHC 33.0 RDW 13.6 Plt Count 194 MPV 10.8 Neut # (Auto) Not Reportable Lymph # (Auto) Not Reportable Baldwin # (Auto) Not Reportable Eos # (Auto) Not Reportable Baso # (Auto) Not Reportable Absolute Nucleated RBC Not Reportable Total Counted 100 Band Neuts % (Manual) 0 Abnorm Lymph % (Manual) 0 Nucleated RBC % Not Reportable Neutrophils # (Manual) 22.8 H Lymphocytes # (Manual) 1.1 L Monocytes # (Manual) 2.7 H Eosinophils # (Manual) 0.0 Basophils # (Manual) 0.0 Differential Comment MANUAL DIFFERENTIAL Platelet Estimate NORMAL (130-450,000) Platelet Morphology NORMAL APPEARANCE RBC Morph Micro Appear NORMAL APPEARANCE Sodium 130 L Potassium 4.0 Chloride 95 L Carbon Dioxide 22 Anion Gap 13.0 BUN 15 Creatinine 1.1 Estimated GFR (MDRD) 64 L Glucose 294 H Calcium 8.8 Total Bilirubin 2.3 H AST 23 ALT 21 Alkaline Phosphatase 54 Troponin I High Sens 23.3 H* Total Protein 7.6 Albumin 3.3 Globulin 4.3 H Albumin/Globulin Ratio 0.8 L Lipase 22 Urine Color Urine Clarity Urine pH Ur Specific [place] Urine Protein Urine Glucose (UA) Urine Ketones Urine Occult Blood Urine Nitrite Urine Bilirubin Urine Urobilinogen Ur Leukocyte Esterase Ur Microscopic Review Urine Culture Comments Nasal Adenovirus (PCR) Nasal B. parapertussis DNA (PCR) Nasal Coronavir 229E PCR Nasal Coronavir HKU1 PCR Nasal Coronavir NL63 PCR Nasal Coronavir OC43 PCR Nasal Enterovir/Rhinovir PCR Nasal Influenza B PCR Nasal Influenza A PCR Nasal Parainfluen 1 PCR Nasal Parainfluen 2 PCR Nasal Parainfluen 3 PCR Nasal Parainfluen 4 PCR Nasal RSV (PCR) Nasal B.pertussis DNA PCR Nasal C.pneumoniae (PCR) Michael Human Metapneumo PCR Nasal M.pneumoniae (PCR) Nasal SARS-CoV-2 (PCR) 11/02/22 11/02/22 11:45 14:05 WBC RBC Hgb Hct MCV MCH MCHC RDW Plt Count MPV Neut # (Auto) Lymph # (Auto) Baldwin # (Auto) Eos # (Auto) Baso # (Auto) Absolute Nucleated RBC Total Counted Band Neuts % (Manual) Abnorm Lymph % (Manual) Nucleated RBC % Neutrophils # (Manual) Lymphocytes # (Manual) Monocytes # (Manual) Eosinophils # (Manual) Basophils # (Manual) Differential Comment Platelet Estimate Platelet Morphology RBC Morph Micro Appear Sodium Potassium Chloride Carbon Dioxide Anion Gap BUN Creatinine Estimated GFR (MDRD) Glucose Calcium Total Bilirubin AST ALT Alkaline Phosphatase Troponin I High Sens Total Protein Albumin Globulin Albumin/Globulin Ratio Lipase Urine Color DARK YELLOW Urine Clarity CLEAR Urine pH 5.5 Ur Specific [place] >=1.030 H Urine Protein TRACE Urine Glucose (UA) 500 H Urine Ketones TRACE Urine Occult Blood NEGATIVE Urine Nitrite NEGATIVE Urine Bilirubin NEGATIVE Urine Urobilinogen 2 H Ur Leukocyte Esterase NEGATIVE Ur Microscopic Review NOT INDICATED Urine Culture Comments NOT INDICATED Nasal Adenovirus (PCR) DETECTED A Nasal B. parapertussis DNA (PCR) NOT DETECTED Nasal Coronavir 229E PCR NOT DETECTED Nasal Coronavir HKU1 PCR NOT DETECTED Nasal Coronavir NL63 PCR NOT DETECTED Nasal Coronavir OC43 PCR NOT DETECTED Nasal Enterovir/Rhinovir PCR NOT DETECTED Nasal Influenza B PCR NOT DETECTED Nasal Influenza A PCR NOT DETECTED Nasal Parainfluen 1 PCR NOT DETECTED Nasal Parainfluen 2 PCR NOT DETECTED Nasal Parainfluen 3 PCR NOT DETECTED Nasal Parainfluen 4 PCR NOT DETECTED Nasal RSV (PCR) NOT DETECTED Nasal B.pertussis DNA PCR NOT DETECTED Nasal C.pneumoniae (PCR) NOT DETECTED Michael Human Metapneumo PCR NOT DETECTED Nasal M.pneumoniae (PCR) NOT DETECTED Nasal SARS-CoV-2 (PCR) NOT DETECTED - Rads (name of study) chest Radiology: Prelim report reviewed (Impression: No acute cardiopulmonary abnormality. Low lung volumes.), EMP read indepedently, See rad report Procedures - IVC sono (time) 1130 Bedside IVC sono: IVC measures (cm) (cannot see) PD Medical Decision Making - ED course Complexity details: reviewed old records, reviewed results, re-evaluated patient, considered differential, d/w patient Reviewed Lab Results: We reviewed a complete blood count which showed a markedly elevated white blood cell count at 26.5 with 0 bands and 86% neutrophils.Patient's blood chemistries were remarkable for a sodium low at 130 chloride low at 95 a glucose elevated at 294 liver functions were normal with the exception of a bilirubin of total of 2.3 high sensitive troponin was 23.3 mildly elevated. ED course: 82-year-old Timur Pelaez comes into the emergency department today with the chief complaint of some chest pain he has some tenderness to the right chest wall and he has been struggling for breath for more than a week more than his usual. I suspect this is the crux of the reason the patient is here is for chest wall fatigue. He is treated in the emergency department with a DuoNeb treatment he is administered intravenous saline and dexamethasone as well as Toradol for the chest wall pain. He does have a markedly elevated white blood cell count with predominance of neutrophils. His chest x-ray does not demonstrate changes that would indicate a pneumonia. He has a history of pulmonary fibrosis and is normally short of breath. Here in the emergency department we have obtained 2 sets of blood cultures and are working on obtaining a urinalysis. Urinalysis shows concentrated urine and the biofire is positive for adenovirus. He has improvement with all of the treatments provided and wants to go home. He was taught in the use of an inhaler and we will place him on a course of predinsone. Departure - Departure Disposition: 01 Home, Self Care Clinical Impression: Adenoviral bronchitis, Chest wall pain Asthmatic bronchitis Qualifiers: Asthma severity: mild Asthma persistence: intermittent Asthma complication type: with acute exacerbation Qualified Code(s): J45.21 - Mild intermittent asthma with (acute) exacerbation Condition: Stable Instructions: ED Reactive Airway Disease, ED URI Viral W Wheezing, ED Chest Pain Costochondritis Follow-Up: Nataly Puga PA-C [Provider Admit Priv/Credential] - Prescriptions: Albuterol Sulf [Ventolin Hfa Inhaler] 1 - 2 puffs INH Q4HR PRN #1 each PRN Reason: Shortness Of Air/Wheezing predniSONE [Deltasone] 40 mg PO DAILY 5 Days #10 tab HYDROcod/ACETAM 5/325 [Cordova 5/325] 1 - 2 tablet PO Q6H PRN #14 tablet PRN Reason: Pain Comments: Timur today looks like you have infection with a virus called adenovirus and this is likely to make your lung disease a bit worse. I have prescribed prednisone and an albuterol inhaler and I have E scribed this to [facility] in [place]. For the chest wall pain I have prescribed a limited amount of a narcotic pain reliever.
[2022-11-02] MEDS ORDERED: IPRATROPIUM/ALBUTEROL 3 ML NEB INH STA (11:29)
[2022-11-02] MEDS ORDERED: KETOROLAC 30 MG/ML VIAL IVP STA (11:29)
[2022-11-02] MEDS ORDERED: SODIUM CHLORIDE 0.9% 1,000 ML IV STA (11:29)
[2022-11-02] MEDS ORDERED: DEXAMETHASONE 10 MG/ML VIAL IVP STA (11:29)
[2022-11-02 13:05] LABS: B. PARAPERTUSSIS- RESP PCR PAN NOT DETECTED; B. PERTUSSIS- RESP PCR PANEL NOT DETECTED; C. PNEUMONIAE- RESP PCR PANEL NOT DETECTED; CORONAVIRUS 229E-RESP PCR NOT DETECTED; CORONAVIRUS HKU1-RESP PCR NOT DETECTED; CORONAVIRUS NL63-RESP PCR NOT DETECTED; CORONAVIRUS OC43-RESP PCR NOT DETECTED; HUMAN METAPNEUMOVIRUS NOT DETECTED; INFLUENZA A- RESP PCR PANEL NOT DETECTED; INFLUENZA B - RESP PCR PANEL NOT DETECTED; M. PNEUMONIAE- RESP PCR PANEL NOT DETECTED; PARAINFLUENZA VIRUS 1 NOT DETECTED; PARAINFLUENZA VIRUS 2 NOT DETECTED; PARAINFLUENZA VIRUS 3 NOT DETECTED; PARAINFLUENZA VIRUS 4 NOT DETECTED; RHINOVIRUS/ENTEROVIRUS NOT DETECTED; RSV- RESP PCR PANEL NOT DETECTED; SARS-CoV-2 -RESP PCR PANEL NOT DETECTED
[2022-11-02 13:16] VITALS: BP 149/87
[2022-11-02] MEDS ORDERED: ACETAMINOPHEN 325 MG TABLET PO STA (13:42)
[2022-11-02 14:24] LABS: BILIRUBIN,URINE NEGATIVE (NEGATIVE); CLARITY,URINE CLEAR (CLEAR); GLUCOSE, URINE (UA) 500 mg/dL (NEGATIVE); KETONES,URINE (UA) TRACE mg/dL (NEGATIVE); LEUKOCYTE ESTERASE, URINE NEGATIVE (NEGATIVE); NITRITE,URINE NEGATIVE (NEGATIVE); OCCULT BLOOD,URINE NEGATIVE (NEGATIVE); PH,URINE 5.5 PH (5.0-7.5); PROTEIN,URINE TRACE mg/dL (NEGATIVE); UROBILINOGEN,URINE 2 E.U./dL (NORMAL)
== END 2022-11-02 15:28 | disposition home or self-care (01) ==
LOC: EDUNIT# → ED 09:35
DX: J45.21 Mild intermittent asthma with (acute) exacerbation (principal); B97.0 Adenovirus as the cause of diseases classified elsewhere; J84.10 Pulmonary fibrosis, unspecified; R07.89 Other chest pain; F17.200 Nicotine dependence, unspecified, uncomplicated; Z20.822 Contact with and (suspected) exposure to COVID-19
CPT/HCPCS: 36415; 71045; 80053; 81003; 83690; 84484; 85025; 87040; 87633; 93005; 94640; 94664; 96361; 96374; 96375; 99284; A9270; 81001; 87086

== ENCOUNTER 2022-11-04 19:44 | Outpatient (CLI) | payer MEDICARE, OTHER | END 2022-11-04 19:45 | disposition EMS.NT | LOC: EMS 19:44 | DX: M54.2 Cervicalgia (principal); M25.511 Pain in right shoulder; R07.81 Pleurodynia ==

== ENCOUNTER 2022-12-30 08:42 | Outpatient (CLI) | payer MEDICARE, OTHER ==
[2022-12-30 13:15] LABS: ESTIMATED AVERAGE GLUCOSE 146 mg/dL (70-100); HEMOGLOBIN A1c% 6.7 % (4.27-6.07)
[2022-12-30 13:26] LABS: ALBUMIN 3.3 g/dL (3.2-5.5); ALBUMIN/GLOBULIN RATIO 0.9 (1.0-2.2); ALKALINE PHOSPHATASE 49 IU/L (42-121); ALT ALANINE AMINOTRANSFERASE 19 IU/L (10-60); AST ASPARTATE AMINOTRANSFERASE 20 IU/L (10-42); BILIRUBIN,TOTAL 0.6 mg/dL (0.2-1.0); BUN - BLOOD UREA NITROGEN 19 mg/dL (6-20); CARBON DIOXIDE - CO2 28 mmol/L (21-32); CHLORIDE 110 mmol/L (101-111); CHOL/HDL RATIO 4.4 (<5.0); CHOLESTEROL 128 mg/dL; CREATININE 1.1 mg/dL (0.6-1.2); GFR - MDRD 64 (>89); GLUCOSE 122 mg/dL (70-100); HDL CHOLESTEROL 29 mg/dL; LDL CHOLESTEROL,CALCULATED 78 mg/dL; LDL/HDL RATIO 2.7 (<3.6); POTASSIUM 4.3 mmol/L (3.5-5.0); SODIUM 140 mmol/L (135-145); TRIGLYCERIDES 107 mg/dL; VLDL CHOLESTEROL 21 mg/dL
== END 2022-12-30 08:43 | disposition home or self-care (01) ==
LOC: LAB.N 08:42
PROVIDERS: ATTEND Physician Assistant Medical
DX: E53.8 Deficiency of other specified B group vitamins (principal); E11.49 Type 2 diabetes mellitus with other diabetic neurological complication
CPT/HCPCS: 36415; 80053; 80061; 82607; 83036; 83721

== ENCOUNTER 2023-04-08 08:10 | Outpatient (CLI) | payer MEDICARE, OTHER ==
[2023-04-08 12:11] LABS: ESTIMATED AVERAGE GLUCOSE 148 mg/dL (70-100); HEMOGLOBIN A1c% 6.8 % (4.27-6.07)
[2023-04-08 12:43] LABS: ALBUMIN 3.8 g/dL (3.2-5.5); BILIRUBIN,TOTAL 1.1 mg/dL (0.2-1.0); CALCIUM 9.2 mg/dL (8.5-10.3); CREATININE 1.2 mg/dL (0.6-1.2); POTASSIUM 4.5 mmol/L (3.5-5.0); TOTAL PROTEIN 7.7 g/dL (6.7-8.2)
== END 2023-04-08 08:11 | disposition home or self-care (01) ==
LOC: LAB.N 08:10
PROVIDERS: ATTEND Physician Assistant Medical
DX: E11.49 Type 2 diabetes mellitus with other diabetic neurological complication (principal)
CPT/HCPCS: 36415; 80053; 83036

== ENCOUNTER 2023-07-15 08:55 | Outpatient (CLI) | payer MEDICARE, OTHER ==
[2023-07-15 12:51] LABS: ALBUMIN 3.9 g/dL (3.2-5.5); ALBUMIN/GLOBULIN RATIO 1.1 (1.0-2.2); ALKALINE PHOSPHATASE 90 IU/L (42-121); ALT ALANINE AMINOTRANSFERASE 288 IU/L (10-60); AST ASPARTATE AMINOTRANSFERASE 142 IU/L (10-42); BILIRUBIN,TOTAL 1.3 mg/dL (0.2-1.0); BUN - BLOOD UREA NITROGEN 16 mg/dL (6-20); CALCIUM 9.4 mg/dL (8.5-10.3); CARBON DIOXIDE - CO2 29 mmol/L (21-32); CHLORIDE 106 mmol/L (101-111); CHOL/HDL RATIO 4.5 (<5.0); CHOLESTEROL 140 mg/dL; CREATININE 1.1 mg/dL (0.6-1.3); GFR - MDRD 64 (>89); GLUCOSE 129 mg/dL (74-104); HDL CHOLESTEROL 31 mg/dL; LDL CHOLESTEROL,CALCULATED 84 mg/dL; LDL/HDL RATIO 2.7 (<3.6); POTASSIUM 4.3 mmol/L (3.5-4.5); SODIUM 140 mmol/L (135-145); TOTAL PROTEIN 7.4 g/dL (6.4-8.9); TRIGLYCERIDES 124 mg/dL (48-352); VLDL CHOLESTEROL 25 mg/dL
[2023-07-15 13:02] LABS: ESTIMATED AVERAGE GLUCOSE 157 mg/dL (70-100); HEMOGLOBIN A1c% 7.1 % (4.27-6.07)
== END 2023-07-15 08:56 | disposition home or self-care (01) ==
LOC: LAB.N 08:55
PROVIDERS: ATTEND Physician Assistant Medical
DX: E11.40 Type 2 diabetes mellitus with diabetic neuropathy, unspecified (principal)
CPT/HCPCS: 36415; 80053; 80061; 83036; 83721

== ENCOUNTER 2023-07-18 07:59 | Outpatient (CLI) | payer MEDICARE, OTHER ==
[2023-07-18 12:55] LABS: % IRON SATURATION 31 % (20-50); IRON 113 ug/dL (50-212); TOTAL IRON BINDING CAPACITY 364 ug/dL (250-450); TRANSFERRIN 260 mg/dL (203-362)
[2023-07-19 06:09] LABS: HBsAG SCREEN Negative (Negative); HCV AB Non Reactive (Non Reactive)
== END 2023-07-18 08:00 | disposition home or self-care (01) ==
LOC: LAB.N 07:59
PROVIDERS: ATTEND Nurse Practitioner
DX: R79.89 Other specified abnormal findings of blood chemistry (principal)
CPT/HCPCS: 36415; 83540; 84466; 86704; 86803; 87340

== ENCOUNTER 2023-07-28 06:51 | Outpatient (CLI) | payer MEDICARE, OTHER ==
--- NOTE | 2023-07-28 13:07 | Ultrasound Report ---
PROCEDURE: Abdomen Complete INDICATIONS: ELEVATED LIVER FUNCTION TECHNIQUE: Real-time scanning was performed of the abdominal and retroperitoneal organs, with image documentatio n. COMPARISON: None. FINDINGS: Liver: Increased liver echogenicity, with posterior attenuation, most consistent with moderate to se ester hepatic steatosis. Gallbladder: Cholelithiasis without wall thickening. Biliary ducts: Intrahepatic bile ducts are non-dilated. Extrahepatic bile duct caliber measures 5 m m. Normal is 6-7 mm or less in diameter, or 10 mm or less post-cholecystectomy. Pancreas: Visualized portions of the pancreas are sonographically normal. Spleen: Spleen is normal in size and homogeneous in echotexture. Kidneys: Kidneys are normal in size and echotexture. Right kidney measures 12.6 cm long; left kidne y measures 12.3 cm long. No hydronephrosis or nephrolithiasis. No solid masses. No complex renal cy stic lesions which require follow-up. Aorta: Visualized aorta is normal in caliber at less than 3 cm. Iliacs: Proximal common iliac arteries are normal in caliber at less than 2.5 cm. IVC: Intrahepatic inferior vena cava is patent. Miscellaneous: No free abdominal fluid. IMPRESSION: Moderate to severe hepatic steatosis. In the absence of alcohol use or other confounding factors, zachary vated LFTs may indicate nonalcoholic steatohepatitis (BOYER). Cholelithiasis without sonographic evidence of acute cholecystitis. Reviewed by: Alexandr Fleming on 07/28/2023 1:06 PM [facility] Approved by: Alexandr Fleming on 07/28/2023 1:06 PM [facility] Station ID: [id number]
== END 2023-07-28 06:52 | disposition home or self-care (01) ==
LOC: DI 06:51
PROVIDERS: ATTEND Nurse Practitioner
DX: K76.0 Fatty (change of) liver, not elsewhere classified (principal)

== ENCOUNTER 2023-07-30 14:53 | Outpatient (CLI) | payer MEDICARE, OTHER | END 2023-07-30 14:54 | disposition critical access hospital (66) | LOC: EMS 14:53 | DX: R05.9 Cough, unspecified (principal); R53.81 Other malaise; R53.1 Weakness | CPT/HCPCS: A0425; A0429 ==

== ENCOUNTER 2023-07-30 15:14 | Emergency (ER) | payer MEDICARE, OTHER ==
[2023-07-30] MEDS ORDERED: ALBUTEROL NEB 2.5 MG/3 ML INH STA (15:36)
[2023-07-30] MEDS ORDERED: IPRATROPIUM/ALBUTEROL 3 ML NEB INH STA (15:36)
[2023-07-30] MEDS ORDERED: SODIUM CHLORIDE 0.9% 1,000 ML IV STA (15:38)
--- NOTE | 2023-07-30 15:40 | ED Physician Documentation ---
History of Present Illness - Stated complaint Stated Complaint: COUGH - Chief complaint Chief Complaint: Resp - Additonal information Additional information: 82-year-old male who has a history of asthmatic bronchitis, hypertension diabetes, hyperlipidemia presents to the emergency department for evaluation of a cough for 2 weeks. He denies any fevers during that time but states he is feeling increasingly weak. No hemoptysis. Reports being fully vaccinated for COVID. Presentation to the emergency department the patient is quiet. Saturating 92 to 96% on room air. Appears to be in no distress. However he states he is unable to sit forward for the exam so that I can listen to his posterior lung reyes. Review of Systems Constitutional: denies: Fever, Chills Throat: reports: Reviewed and negative Cardiac: reports: Reviewed and negative Respiratory: reports: Dyspnea, Cough, Wheezing. denies: Hemoptysis GI: reports: Reviewed and negative : reports: Reviewed and negative PD PAST MEDICAL HISTORY - Past Medical History Cardiovascular: Hypertension, High cholesterol, Coronary artery disease Respiratory: Sleep apnea, CPAP use, Other Neuro: None Endocrine/Autoimmune: Type 2 diabetes GI: GERD, Colon polyps, Chronic constipation : Benign prostate hypertrophy HEENT: Chronic vision loss, Chronic hearing loss Psych: Depression, Anxiety, Panic attacks Musculoskeletal: Osteoarthritis, Chronic back pain, Other Derm: Eczema - Past Surgical History Past Surgical History: Yes General: Colonoscopy Ortho: Knee replacement, Shoulder arthroplasty Cardiovascular: Cardiac catheterization HEENT: Other - Present Medications Home Medications: Ambulatory Orders Medication Instructions Recorded Confirmed Escitalopram Oxalate 20 mg PO QPM 01/05/18 11/02/22 Insulin Glargine [Lantus Solostar] 60 unit SUBQ HS 01/05/18 11/02/22 Pantoprazole Sodium 20 mg PO QDAC 01/05/18 11/02/22 atenoloL [Atenolol] 50 mg PO QPM 01/05/18 11/02/22 Aspirin [Aspirin EC] 81 mg PO DAILY 01/28/19 11/02/22 Dulaglutide [Trulicity] 1.5 mg SQ Q7D 01/28/19 11/02/22 Simvastatin [Zocor] 40 mg PO HS 01/28/19 11/02/22 Glimepiride [Amaryl] 2 mg PO 0800 08/14/22 11/02/22 Mecobalamin [B12 Active] 1,000 mcg PO DAILY 08/14/22 11/02/22 SITagliptin [Januvia] 100 mg PO DAILY 08/14/22 11/02/22 Spironolactone [Aldactone] 25 mg PO DAILY 08/14/22 11/02/22 Albuterol Sulf [Ventolin Hfa 1 - 2 puffs INH Q4HR PRN #1 each 11/02/22 Inhaler] HYDROcod/ACETAM 5/325 [[place] 5/325] 1 - 2 tablet PO Q6H PRN #14 tablet 11/02/22 predniSONE [Deltasone] 40 mg PO DAILY 5 Days #10 tab 11/02/22 Albuterol Sulf [Ventolin Hfa 1 - 2 puffs INH Q4HR PRN #1 each 07/30/23 Inhaler] Benzonatate [Tessalon] 200 mg PO TID PRN #20 cap 07/30/23 guaiFENesin [Mucinex] 1,200 mg PO BID #30 tablet 07/30/23 - Allergies Allergies/Adverse Reactions: Allergies Allergy/AdvReac Type Severity Reaction Status Date / Time codeine Allergy Hallucinati Verified 07/30/23 15:22 ons lisinopril AdvReac cough Verified 07/30/23 15:22 - Social History Does the pt smoke?: No Smoking Status: Never smoker Does the pt drink ETOH?: Yes Does the pt have substance abuse?: No - Immunizations Immunizations are current?: Yes - POLST Patient has POLST: No PD ED PE NORMAL - General General: Alert and oriented X 3, No acute distress, Well developed/nourished - Cardiac Cardiac: RRR, No murmur - Respiratory Respiratory: No respiratory distress. No: Clear bilaterally (Faint scattered expiratory wheeze) - Abdomen Abdomen: Normal bowel sounds, Soft, Non distended (Distended nontender abdomen.) - Derm Derm: Normal color, Warm and dry - Neuro Neuro: Alert and oriented X 3 Eye Opening: Spontaneous Motor: Obeys Commands Verbal: Oriented GCS Score: 15 Results - Vitals Vitals: Vital Signs - 24 hr 07/30/23 07/30/23 07/30/23 15:16 16:02 17:22 Temperature 37.2 C 36.9 C Heart Rate 91 90 100 Respiratory 22 29 H 33 H Rate Blood Pressure 160/76 H 167/77 H O2 Saturation 92 94 07/30/23 07/30/23 19:00 20:00 Temperature Heart Rate 94 88 Respiratory 24 24 Rate Blood Pressure 136/63 H 138/89 H O2 Saturation 93 91 L Oxygen O2 Source Room air - Labs Labs: Laboratory Tests 07/30/23 07/30/23 07/30/23 15:31 15:38 15:58 WBC 14.9 H RBC 4.68 L Hgb 14.4 Hct 43.9 MCV 93.8 MCH 30.8 MCHC 32.8 RDW 13.2 Plt Count 224 MPV 9.9 Neut # (Auto) 12.2 H Lymph # (Auto) 1.1 L [place] # (Auto) 1.4 H Eos # (Auto) 0.0 Baso # (Auto) 0.1 Absolute Nucleated RBC 0.00 Nucleated RBC % 0.0 Sodium Potassium Chloride Carbon Dioxide Anion Gap BUN Creatinine Estimated GFR (MDRD) Glucose Calcium Total Bilirubin AST ALT Alkaline Phosphatase B-Natriuretic Peptide 125 H Total Protein Albumin Globulin Albumin/Globulin Ratio Lipase Nasal Adenovirus (PCR) NOT DETECTED Nasal B. parapertussis DNA (PCR) NOT DETECTED Nasal Coronavir 229E PCR NOT DETECTED Nasal Coronavir HKU1 PCR NOT DETECTED Nasal Coronavir NL63 PCR NOT DETECTED Nasal Coronavir OC43 PCR NOT DETECTED Nasal Enterovir/Rhinovir PCR NOT DETECTED Nasal Influenza B PCR NOT DETECTED Nasal Influenza A PCR NOT DETECTED Nasal Parainfluen 1 PCR NOT DETECTED Nasal Parainfluen 2 PCR NOT DETECTED Nasal Parainfluen 3 PCR NOT DETECTED Nasal Parainfluen 4 PCR NOT DETECTED Nasal RSV (PCR) NOT DETECTED Nasal B.pertussis DNA PCR NOT DETECTED Nasal C.pneumoniae (PCR) NOT DETECTED Michael Human Metapneumo PCR DETECTED A Nasal M.pneumoniae (PCR) NOT DETECTED Nasal SARS-CoV-2 (PCR) NOT DETECTED 07/30/23 15:58 WBC RBC Hgb Hct MCV MCH MCHC RDW Plt Count MPV Neut # (Auto) Lymph # (Auto) [place] # (Auto) Eos # (Auto) Baso # (Auto) Absolute Nucleated RBC Nucleated RBC % Sodium 134 L Potassium 4.1 Chloride 101 Carbon Dioxide 26 Anion Gap 7.0 BUN 12 Creatinine 1.2 Estimated GFR (MDRD) 58 L Glucose 232 H Calcium 8.5 Total Bilirubin 1.1 H AST 25 ALT 22 Alkaline Phosphatase 57 B-Natriuretic Peptide Total Protein 7.0 Albumin 3.5 Globulin 3.5 Albumin/Globulin Ratio 1.0 Lipase < 10 L Nasal Adenovirus (PCR) Nasal B. parapertussis DNA (PCR) Nasal Coronavir 229E PCR Nasal Coronavir HKU1 PCR Nasal Coronavir NL63 PCR Nasal Coronavir OC43 PCR Nasal Enterovir/Rhinovir PCR Nasal Influenza B PCR Nasal Influenza A PCR Nasal Parainfluen 1 PCR Nasal Parainfluen 2 PCR Nasal Parainfluen 3 PCR Nasal Parainfluen 4 PCR Nasal RSV (PCR) Nasal B.pertussis DNA PCR Nasal C.pneumoniae (PCR) Michael Human Metapneumo PCR Nasal M.pneumoniae (PCR) Nasal SARS-CoV-2 (PCR) - Rads (name of study) cxr Relevant Findings:: Final report received (Prominent increased vascularity consistent with edema.) PD Medical Decision Making - ED course Complexity details: reviewed results, re-evaluated patient, considered differential, d/w patient ED course: 82-year-old male presents to the emergency department for evaluation of cough that is been ongoing for about 2 weeks. He reports being generally fatigued and weak and having difficulty getting out of bed for the last 3 days. On presentation to the emergency department he was noted to be mildly tachypneic with respiratory rate in the 30s. However room air sats were 92%. Cardiopulmonary auscultation revealed some faint scattered wheeze. He was without fever or hypotension or tachycardia. A chest x-ray is interpreted by radiologist showed increased vascularity consistent with edema. Patient's BNP was 125 though this may be falsely low in the setting of obesity. CBC electrolytes are reviewed by myself. He does have mild leukocytosis with a white count of 15,000. Normal hemoglobin. No worrisome electrolyte derangement though his sodium p.m. is 134 and his glucose is 232. He does have a history of diabetes. Respiratory PCR panel was positive for human metapneumovirus. Given a chest x-ray that suggest some mild volume overload the patient was administered 40 mg of Lasix here in the emergency department and is diuresing well. Respiratory therapy did give the patient a breathing treatment with no change in symptoms. Clinically there is no admittable diagnosis for the patient to the hospital. He likely does have some component of CHF but is not hypoxic. The leukocytosis is likely secondary to the viral URI. I do not feel he has a bacterial pneumonia. I discussed with patient the findings today in the ER and my recommendation for him to convalesce at home. However he reported that he did not feel safe going home as his family is going to [place] and will not be home until Friday. He is requesting to go to [facility] for respite care. 1730: Our nursing staff contacted the patient's granddaughter who reports that she is aware the patient is in the hospital (they were home when EMS was summoned) in the emergency department. She states that she cannot pick him up from the emergency department as she is leaving this afternoon to go to [place]. but she is happy to pick him up on Friday when she returns. At this time there is no safe disposition for the patient he will board in the emergency department to be seen by social work when available. I have ordered what feel to be the most appropriate home medication the patient will require while boarding as well as PT/OT and routine duonebs. SW will see in am. 2009: Patient's granddaughter Crystal has called and asked for clinical update. I informed her of the patient's findings and include a viral upper respiratory infection though no clinical reason to admit. She states that she is traveling to [place] and there is nobody home to care for him. I encouraged her to try and find support to help care for her grandfather, but otherwise we would have social work see patient in the am. She stated that she would do what she could. 2100: I have been notified that the patient's granddaughter Crystal is in route to the hospital to berry picker machine operator the patient. In order to help support him as he recovers from this viral illness I have prescribed albuterol to be used with a spacer 4-6 times a day. This will encourage deep breathing and cough. Tessalon Perles have been prescribed as well because the patient is bothered by his cough. Mucinex as an expectorant. The usual emergent return precautions for worsening symptoms was discussed. Departure - Departure Disposition: Home, Self Care Clinical Impression: Generalized weakness, Infection due to human metapneumovirus (hMPV) Cough Qualifiers: Cough type: acute Qualified Code(s): R05.1 - Acute cough Condition: Stable Record reviewed to determine appropriate education?: Yes Instructions: ED Viral Syndrome Prescriptions: Albuterol Sulf [Ventolin Hfa Inhaler] 1 - 2 puffs INH Q4HR PRN #1 each PRN Reason: Shortness Of Air/Wheezing guaiFENesin [Mucinex] 1,200 mg PO BID #30 tablet Benzonatate [Tessalon] 200 mg PO TID PRN #20 cap PRN Reason: Cough Comments: Timur mistry were seen today in the emergency department because you have had a cough for about 2 weeks. The x-ray did not show pneumonia. However you have tested positive for a virus called human metapneumovirus. This causes cough and congestion. In order to treat the cough I am prescribing a medication called Tessalon Perles. You can take these 3 times a day. This will help suppress the cough. I would like you to use the albuterol inhaler 4-6 times a day for the next several days. Please use the spacer given to you when using the albuterol. This will encourage you to take full deep breaths and cough. If you find that you are having excessive secretions you can use the Mucinex as prescribed. You can continue to take your usual home medications. If you find that your cough is worsening despite this treatment, you develop fevers, are having difficulty breathing or develop any chest pain then you should return immediately to the emergency department. Forms: PCP List
[2023-07-30 16:11] LABS: BASOPHILS # (AUTO) 0.1 10^3/uL (0.0-0.1); BASOPHILS % (AUTO) 0.4 %; EOSINOPHILS % (AUTO) 0.1 %; HCT - HEMATOCRIT 43.9 % (42.0-52.0); HGB - HEMOGLOBIN 14.4 g/dL (14.0-18.0); LYMPHOCYTES # (AUTO) 1.1 10^3/uL (1.5-3.5); LYMPHOCYTES % (AUTO) 7.4 %; MEAN CORPUSCULAR HEMOGLOBIN 30.8 pg (27.0-31.0); MEAN CORPUSCULAR HGB CONC 32.8 g/dL (32.0-36.0); MEAN CORPUSCULAR VOLUME 93.8 fL (80.0-94.0); MEAN PLATELET VOLUME 9.9 fL (7.4-11.4); MONOCYTES # (AUTO) 1.4 10^3/uL (0.0-1.0); MONOCYTES % (AUTO) 9.3 %; NEUTROPHILS # (AUTO) 12.2 10^3/uL (1.5-6.6); NEUTROPHILS % (AUTO) 82.1 %; PLT - PLATELET COUNT 224 10^3/uL (130-450); RED BLOOD COUNT 4.68 10^6/uL (4.70-6.10); RED CELL DISTRIBUTION WIDTH 13.2 % (12.0-15.0); WHITE BLOOD COUNT 14.9 x10^3/uL (4.8-10.8)
[2023-07-30 16:25] LABS: ALBUMIN 3.5 g/dL (3.2-5.5); ALKALINE PHOSPHATASE 57 IU/L (42-121); ALT ALANINE AMINOTRANSFERASE 22 IU/L (10-60); AST ASPARTATE AMINOTRANSFERASE 25 IU/L (10-42); BILIRUBIN,TOTAL 1.1 mg/dL (0.2-1.0); BUN - BLOOD UREA NITROGEN 12 mg/dL (6-20); CALCIUM 8.5 mg/dL (8.5-10.3); CARBON DIOXIDE - CO2 26 mmol/L (21-32); CHLORIDE 101 mmol/L (101-111); CREATININE 1.2 mg/dL (0.6-1.3); GFR - MDRD 58 (>89); GLUCOSE 232 mg/dL (74-104); POTASSIUM 4.1 mmol/L (3.5-4.5); SODIUM 134 mmol/L (135-145)
--- NOTE | 2023-07-30 16:25 | XRAY Report ---
PROCEDURE: Chest 1 View X-Ray INDICATIONS: chest pain TECHNIQUE: One view of the chest was acquired. COMPARISON: Chest x-ray 11/02/2022 FINDINGS: Surgical changes and devices: None. Lungs and pleura: Prominent diffuse increased pulmonary vascularity. Mediastinum: Mediastinal contours appear normal. Heart size is normal. Bones and chest wall: No suspicious bony lesions. Overlying soft tissues appear unremarkable. IMPRESSION: Prominent increased vascularity consistent with edema. Reviewed by: Manju Serrano MD on 07/30/2023 4:23 PM [facility] Approved by: Manju Serrano MD on 07/30/2023 4:23 PM [facility] Station ID: [id number]
[2023-07-30 16:27] LABS: LIPASE < 10 U/L (11-82)
[2023-07-30 16:43] LABS: CORONAVIRUS 229E-RESP PCR NOT DETECTED
[2023-07-30 16:44] LABS: B. PARAPERTUSSIS- RESP PCR PAN NOT DETECTED; B. PERTUSSIS- RESP PCR PANEL NOT DETECTED; C. PNEUMONIAE- RESP PCR PANEL NOT DETECTED; CORONAVIRUS HKU1-RESP PCR NOT DETECTED; CORONAVIRUS NL63-RESP PCR NOT DETECTED; CORONAVIRUS OC43-RESP PCR NOT DETECTED; HUMAN METAPNEUMOVIRUS DETECTED; INFLUENZA A- RESP PCR PANEL NOT DETECTED; INFLUENZA B - RESP PCR PANEL NOT DETECTED; M. PNEUMONIAE- RESP PCR PANEL NOT DETECTED; PARAINFLUENZA VIRUS 1 NOT DETECTED; PARAINFLUENZA VIRUS 2 NOT DETECTED; PARAINFLUENZA VIRUS 3 NOT DETECTED; PARAINFLUENZA VIRUS 4 NOT DETECTED; RHINOVIRUS/ENTEROVIRUS NOT DETECTED; RSV- RESP PCR PANEL NOT DETECTED; SARS-CoV-2 -RESP PCR PANEL NOT DETECTED
[2023-07-30] MEDS ORDERED: FUROSEMIDE 40 MG/4 ML VIAL IVP STA (16:47)
[2023-07-30] MEDS ORDERED: ONDANSETRON 4 MG/2 ML VIAL IVP PRN (19:02)
[2023-07-30] MEDS ORDERED: ACETAMINOPHEN 500 MG TABLET PO PRN (19:02)
[2023-07-30] MEDS ORDERED: ALBUTEROL 1 PUFF INH STA (20:54)
[2023-07-30] MEDS ORDERED: BENZONATATE 100 MG CAPSULE PO STA (20:58)
[2023-07-30] MEDS ORDERED: METOPROLOL TARTRATE 25 MG TABLET PO SCH (21:00)
[2023-07-30] MEDS ORDERED: INSULIN GLARGINE-YFGN 300 UNIT/3 ML PEN SUBQ SCH (21:00)
[2023-07-30] MEDS ORDERED: IPRATROPIUM/ALBUTEROL 3 ML NEB INH SCH (22:00)
[2023-07-30 22:20] VITALS: BP 142/72; O2SAT 92
[2023-07-31] MEDS ORDERED: PANTOPRAZOLE 40 MG TABLET PO SCH (07:00)
[2023-07-31] MEDS ORDERED: LOSARTAN 50 MG TABLET PO SCH (09:00)
[2023-07-31] MEDS ORDERED: ENOXAPARIN 40 MG/0.4 ML SYRINGE SUBQ SCH (09:00)
== END 2023-07-30 22:20 | disposition home or self-care (01) ==
LOC: EDUNIT# → ED 15:14
DX: R53.1 Weakness (principal); R05.9 Cough, unspecified; B97.81 Human metapneumovirus as the cause of diseases classified elsewhere; I10 Essential (primary) hypertension; E78.00 Pure hypercholesterolemia, unspecified; I25.10 Atherosclerotic heart disease of native coronary artery without angina pectoris; E11.9 Type 2 diabetes mellitus without complications; Z79.4 Long term (current) use of insulin; Z79.899 Other long term (current) drug therapy; Z79.82 Long term (current) use of aspirin; Z79.84 Long term (current) use of oral hypoglycemic drugs; Z20.822 Contact with and (suspected) exposure to COVID-19
CPT/HCPCS: 36415; 71045; 80053; 83690; 83880; 85025; 87633; 94640; 94664; 96374; 99284; 99285; J1815

== ENCOUNTER 2023-10-20 08:51 | Outpatient (CLI) | payer MEDICARE, OTHER ==
[2023-10-20 12:25] LABS: BASOPHILS # (AUTO) 0.1 10^3/uL (0.0-0.1); BASOPHILS % (AUTO) 0.9 %; EOSINOPHILS # (AUTO) 0.4 10^3/uL (0.0-0.7); EOSINOPHILS % (AUTO) 4.4 %; HCT - HEMATOCRIT 46.8 % (42.0-52.0); HGB - HEMOGLOBIN 14.4 g/dL (14.0-18.0); LYMPHOCYTES # (AUTO) 2.6 10^3/uL (1.5-3.5); LYMPHOCYTES % (AUTO) 31.3 %; MEAN CORPUSCULAR HEMOGLOBIN 30.1 pg (27.0-31.0); MEAN CORPUSCULAR HGB CONC 30.8 g/dL (32.0-36.0); MEAN CORPUSCULAR VOLUME 97.9 fL (80.0-94.0); MEAN PLATELET VOLUME 11.5 fL (7.4-11.4); MONOCYTES % (AUTO) 12.3 %; NEUTROPHILS # (AUTO) 4.2 10^3/uL (1.5-6.6); NEUTROPHILS % (AUTO) 50.9 %; PLT - PLATELET COUNT 227 10^3/uL (130-450); RED BLOOD COUNT 4.78 10^6/uL (4.70-6.10); RED CELL DISTRIBUTION WIDTH 14.1 % (12.0-15.0); WHITE BLOOD COUNT 8.2 x10^3/uL (4.8-10.8)
[2023-10-20 12:52] LABS: ALBUMIN 3.6 g/dL (3.2-5.5); BILIRUBIN,TOTAL 0.7 mg/dL (0.2-1.0); CALCIUM 9.3 mg/dL (8.5-10.3); CREATININE 1.1 mg/dL (0.6-1.3); POTASSIUM 4.3 mmol/L (3.5-4.5); TOTAL PROTEIN 7.3 g/dL (6.4-8.9)
[2023-10-20 13:36] LABS: ESTIMATED AVERAGE GLUCOSE 157 mg/dL (70-100); HEMOGLOBIN A1c% 7.1 % (4.27-6.07)
== END 2023-10-20 08:52 | disposition home or self-care (01) ==
LOC: LAB.N 08:51
PROVIDERS: ATTEND Physician Assistant Medical
DX: E11.49 Type 2 diabetes mellitus with other diabetic neurological complication (principal); R06.09 Other forms of dyspnea
CPT/HCPCS: 36415; 80053; 83036; 83880; 85025

== ENCOUNTER 2023-12-17 10:15 | Outpatient (CLI) | payer MEDICARE, OTHER ==
--- NOTE | 2023-12-17 12:39 | XRAY Report ---
PROCEDURE: Shoulder 2+V LT INDICATIONS: STRAIN OF MUSCLE(S) AND TENDON(S) OF ROTATOR CUFF LT SHOULDER TECHNIQUE: 3 views of the shoulder were acquired. COMPARISON: Chest radiograph on July 30, 2023. FINDINGS: Bones: No fractures or dislocations. Mild glenohumeral and moderate acromioclavicular joint space n arrowing and juxta-articular osteophytosis. Coracoclavicular interval is maintained. No suspicious [place] lesions. Visualized ribs appear intact. Soft tissues: No suspicious soft tissue calcifications. Left lung volume is low with diffuse interst itial prominence. IMPRESSION: 1.No acute bony abnormality. 2.Mild glenohumeral and moderate acromioclavicular joint osteoarthritis. 3.Left lung volume is low with diffuse interstitial prominence which may reflect pulmonary edema and/ or atelectasis. If clinically warranted, consider a dedicated chest radiograph for further evaluation . Reviewed by: Don Browne MD on 12/17/2023 12:38 PM PDT Approved by: Don Browne MD on 12/17/2023 12:38 PM PDT Station ID: [id number]
== END 2023-12-17 10:30 | disposition home or self-care (01) ==
LOC: DI.N 10:15
PROVIDERS: ATTEND Family Medicine
DX: M19.012 Primary osteoarthritis, left shoulder (principal)

== ENCOUNTER 2023-12-23 12:42 | Outpatient (CLI) | payer MEDICARE, OTHER | END 2023-12-23 12:43 | disposition home or self-care (01) | LOC: DI 12:42 | PROVIDERS: ATTEND Physician Assistant Medical | DX: R06.09 Other forms of dyspnea (principal) | CPT/HCPCS: 93307 ==

== ENCOUNTER 2024-01-12 08:24 | Outpatient (CLI) | payer MEDICARE, OTHER ==
[2024-01-12 13:11] LABS: ALBUMIN 3.7 g/dL (3.2-5.5); ALBUMIN/GLOBULIN RATIO 1.1 (1.0-2.2); ALKALINE PHOSPHATASE 62 IU/L (42-121); ALT ALANINE AMINOTRANSFERASE 22 IU/L (10-60); AST ASPARTATE AMINOTRANSFERASE 24 IU/L (10-42); BILIRUBIN,TOTAL 0.6 mg/dL (0.2-1.0); BUN - BLOOD UREA NITROGEN 14 mg/dL (6-20); CALCIUM 9.6 mg/dL (8.5-10.3); CARBON DIOXIDE - CO2 29 mmol/L (21-32); CHLORIDE 106 mmol/L (101-111); CHOL/HDL RATIO 5.9 (<5.0); CHOLESTEROL 202 mg/dL; CREATININE 1.2 mg/dL (0.6-1.3); GFR - MDRD 58 (>89); GLUCOSE 105 mg/dL (74-104); HDL CHOLESTEROL 34 mg/dL; LDL CHOLESTEROL,CALCULATED 141 mg/dL; LDL/HDL RATIO 4.1 (<3.6); POTASSIUM 4.2 mmol/L (3.5-4.5); SODIUM 139 mmol/L (135-145); TRIGLYCERIDES 135 mg/dL (48-352); VLDL CHOLESTEROL 27 mg/dL
[2024-01-12 13:50] LABS: ESTIMATED AVERAGE GLUCOSE 151 mg/dL (70-100); HEMOGLOBIN A1c% 6.9 % (4.27-6.07)
== END 2024-01-12 08:25 | disposition home or self-care (01) ==
LOC: LAB.N 08:24
PROVIDERS: ATTEND Physician Assistant Medical
DX: E11.40 Type 2 diabetes mellitus with diabetic neuropathy, unspecified (principal)
CPT/HCPCS: 36415; 80053; 80061; 83036; 83721

== ENCOUNTER 2024-04-19 08:15 | Outpatient (CLI) | payer MEDICARE, OTHER ==
[2024-04-19 12:52] LABS: ALBUMIN 3.7 g/dL (3.2-5.5); ALBUMIN/GLOBULIN RATIO 1.2 (1.0-2.2); ALKALINE PHOSPHATASE 58 IU/L (42-121); ALT ALANINE AMINOTRANSFERASE 14 IU/L (10-60); AST ASPARTATE AMINOTRANSFERASE 17 IU/L (10-42); BILIRUBIN,TOTAL 1.1 mg/dL (0.2-1.0); BUN - BLOOD UREA NITROGEN 14 mg/dL (6-20); CALCIUM 9.4 mg/dL (8.5-10.3); CARBON DIOXIDE - CO2 29 mmol/L (21-32); CHLORIDE 106 mmol/L (101-111); CHOL/HDL RATIO 3.5 (<5.0); CHOLESTEROL 105 mg/dL; CREATININE 1.2 mg/dL (0.6-1.3); GFR - MDRD 58 (>89); GLUCOSE 186 mg/dL (74-104); HDL CHOLESTEROL 30 mg/dL; LDL CHOLESTEROL,CALCULATED 56 mg/dL; LDL/HDL RATIO 1.9 (<3.6); POTASSIUM 4.3 mmol/L (3.5-4.5); SODIUM 140 mmol/L (135-145); TOTAL PROTEIN 6.8 g/dL (6.4-8.9); TRIGLYCERIDES 95 mg/dL; VLDL CHOLESTEROL 19 mg/dL
[2024-04-19 14:01] LABS: ESTIMATED AVERAGE GLUCOSE 200 mg/dL (70-100); HEMOGLOBIN A1c% 8.6 % (4.27-6.07)
== END 2024-04-19 08:16 | disposition home or self-care (01) ==
LOC: LAB.N 08:15
PROVIDERS: ATTEND Physician Assistant Medical
DX: E11.49 Type 2 diabetes mellitus with other diabetic neurological complication (principal)
CPT/HCPCS: 36415; 80053; 80061; 83036; 83721

== ENCOUNTER 2024-05-15 10:50 | Outpatient (CLI) | payer MEDICARE, OTHER ==
--- NOTE | 2024-05-16 21:36 | XRAY Report ---
PROCEDURE: Chest 2V INDICATIONS: COUGH TECHNIQUE: 2 views of the chest were acquired. COMPARISON: CXR 07/30/2023. CT pulmonary angiogram 04/01/2019. FINDINGS: Surgical changes and devices: None. Lungs and pleura: No pleural effusions or pneumothorax. Diffuse coarsened pulmonary markings. Mediastinum: Mediastinal contours appear normal. Heart size is within normal limits. Bones and chest wall: No suspicious bony lesions. Overlying soft tissues appear unremarkable. IMPRESSION: Diffuse coarsened pulmonary markings. Favor fluid overload/CHF. Difficult to exclude underlying inter stitial process. Reviewed by: Balwinder Wong MD on 05/16/2024 9:35 PM PDT Approved by: Balwinder Wong MD on 05/16/2024 9:35 PM PDT Station ID: [id number]
== END 2024-05-15 10:51 | disposition home or self-care (01) ==
LOC: DI 10:50
PROVIDERS: ATTEND Family Medicine
DX: R05.9 Cough, unspecified (principal)

== ENCOUNTER 2024-05-26 10:30 | Outpatient (CLI) | payer MEDICARE, OTHER ==
--- NOTE | 2024-05-26 15:53 | XRAY Report ---
PROCEDURE: Chest 2V INDICATIONS: COUGH TECHNIQUE: 2 views of the chest were acquired. COMPARISON: 05/15/2024 FINDINGS: Surgical changes and devices: None. Lungs and pleura: Moderately prominent interstitium. Low lung volumes. No pleural effusions. Mediastinum: Heart size is normal and unchanged Bones and chest wall: Degenerative changes IMPRESSION: Moderately prominent interstitium again seen, possibly atypical infection or edema. Background inters titial lung disease is possible. Low lung volumes. Reviewed by: Ty Gross MD on 05/26/2024 3:51 PM PDT Approved by: Ty Gross MD on 05/26/2024 3:51 PM PDT Station ID: [id number]
== END 2024-05-26 10:45 | disposition home or self-care (01) ==
LOC: DI.N 10:30
PROVIDERS: ATTEND Physician Assistant Medical
DX: R05.9 Cough, unspecified (principal)